=== PATIENT | male | born 1940 | race Caucasian/White ===

== ENCOUNTER → 2019-07-26 14:47 | Outpatient (BNVA) | payer MEDICARE, SELFPAY | PROVIDERS: Family Provider Family Medicine; PCP Family Medicine; Visit Provider Family Medicine | DX: R53.1 Weakness (principal); N40.0 Benign prostatic hyperplasia without lower urinary tract symptoms; I25.10 Atherosclerotic heart disease of native coronary artery without angina pectoris; G11.9 Hereditary ataxia, unspecified; R13.10 Dysphagia, unspecified; E78.5 Hyperlipidemia, unspecified; I10 Essential (primary) hypertension; E03.9 Hypothyroidism, unspecified; R32 Unspecified urinary incontinence; J98.4 Other disorders of lung; G71.00 Muscular dystrophy, unspecified; N20.0 Calculus of kidney | CPT/HCPCS: 36415; G0103 ==

== ENCOUNTER 2019-08-22 06:00 | Outpatient (RCR) | payer MEDICARE, SELFPAY | END 2019-09-09 23:59 | disposition home or self-care (01) | LOC: GOT 06:00 | PROVIDERS: Family Provider Family Medicine; PCP Family Medicine; Referring Provider Family Medicine; Visit Provider Family Medicine | DX: R53.1 Weakness (principal); G11.9 Hereditary ataxia, unspecified | CPT/HCPCS: 97112; 97167 ==

== ENCOUNTER → 2020-09-05 10:07 | Outpatient (BNVA) | payer MEDICARE, SELFPAY | PROVIDERS: Family Provider Family Medicine; PCP Family Medicine; Visit Provider Nurse Practitioner Family | DX: M25.511 Pain in right shoulder (principal); M89.9 Disorder of bone, unspecified | CPT/HCPCS: 73030; 73060 ==

== ENCOUNTER → 2021-02-20 10:50 | Outpatient (BNVA) | payer MEDICARE, SELFPAY | PROVIDERS: Family Provider Family Medicine; PCP Family Medicine; Visit Provider Family Medicine | DX: E03.9 Hypothyroidism, unspecified (principal); I10 Essential (primary) hypertension; E78.5 Hyperlipidemia, unspecified; N40.0 Benign prostatic hyperplasia without lower urinary tract symptoms; F32.9 Major depressive disorder, single episode, unspecified; G11.9 Hereditary ataxia, unspecified | CPT/HCPCS: 36415; 80053; 80061; 84153; 84439; 84443; 85025 ==

== ENCOUNTER → 2021-12-15 14:26 | Outpatient (BNVA) | payer MEDICARE, SELFPAY | PROVIDERS: Family Provider Family Medicine; PCP Family Medicine; Visit Provider Nurse Practitioner Family | DX: R53.83 Other fatigue (principal); I10 Essential (primary) hypertension; M62.81 Muscle weakness (generalized); E55.9 Vitamin D deficiency, unspecified; E56.9 Vitamin deficiency, unspecified | CPT/HCPCS: 80053; 80061; 82306; 82607; 84443; 84446; 85025 ==

== ENCOUNTER → 2022-01-29 10:55 | Outpatient (BNVA) | payer MEDICARE, SELFPAY | PROVIDERS: Family Provider Family Medicine; PCP Family Medicine; Visit Provider Nurse Practitioner Family | DX: E03.9 Hypothyroidism, unspecified (principal) | CPT/HCPCS: 84443 ==

== ENCOUNTER 2022-06-09 10:08 | Emergency (ER) | payer MEDICARE, SELFPAY ==
[2022-06-09] VITALS (13 sets, daily range): BP systolic 122–152; BP diastolic 68–97; PULSE 68–79; RESP 19–26; TEMP 36.6; O2SAT 88–99; BMI 24.4
--- NOTE | 2022-06-09 10:48 | XRR_ITS ---
PROCEDURE INFORMATION: Exam: XR Chest Exam date and time: 06/09/2022 11:58 AM Age: 82 years old Clinical indication: Cough TECHNIQUE: Imaging protocol: Radiologic exam of the chest. Views: 1 view. COMPARISON: [place] [id number] 09/05/2020 11:29 AM FINDINGS: Lungs: Scattered mild interstitial pulmonary fibrosis. No acute pulmonary infiltrates. Pleural spaces: Unremarkable. No pleural effusion. No pneumothorax. Heart/Mediastinum: The heart is not enlarged. The patient has undergone coronary bypass surgery. Bones/joints: Unremarkable. XR/XR chest 1V portable [id number] IMPRESSION: No acute abnormality.
--- NOTE | 2022-06-09 10:49 | ED_ITS ---
HPI - SOB/Dyspnea General: Chief Complaint: Shortness of Breath/Dyspnea Stated Complaint: SOB Time Seen by Provider: 06/09/22 10:36 History of Present Illness: HPI Narrative: 82-year-old male with a history of COPD who presents with a 4-day history of cough and shortness of breath. The patient was seen at [facility], diagnosed with influenza. He has been using his nebulizer at home without improvement. He presents today with increasing shortness of breath. He has had a cough which is nonproductive. He states he is not having fevers. 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 No vomiting or diarrhea. Associated symptoms: Deny abdominal pain, chest pain, fever(s), nausea, palpitations or vomiting Review of Systems Const: Reports: body aches, fatigue and daytime sleepiness; Denies: fever(s) or chills Eyes: Denies: change in vision or blurry vision ENMT: Denies: throat pain or ear or mastoid pain Card: Denies: chest pain, palpitations, irregular heart rhythm, edema or swelling of feet/ankles GI: Reports: heartburn; Denies: abdominal pain, nausea, vomiting, diarrhea or constipation Musc: Reports: muscle weakness and decrease in muscle mass Skin/Breast: Denies: rash or new lesions PFSH ED PFSH: Medical History (Updated 06/09/22 @ 13:49 by Dulce Parks MD) BPH (benign prostatic hyperplasia) CAD (coronary artery disease) Degeneration, cerebellar, primary Depressed Dysphagia Hyperlipidemia Hypertension Hypothyroid Incontinence of urine Need for immunization against influenza 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 Social History Smoking and tobacco status: former smoker Quit status (tobacco): has quit using tobacco Year quit tobacco: age 32 Alcohol intake: current Alcohol intake frequency: holidays/special occasions on ly Physical Exam Const: COMMON NORMALS: no acute distress, average body habitus and patient oriented x3 GENERAL APPEARANCE: cooperative Eye: COMMON NORMALS: Equal, round and reactive pupils present PUPIL: Yes Equal, round and reactive pupils present Neck/C-Spine: COMMON NORMALS: full ROM, no lymphadenopathy and no JVD Resp: COMMON NORMALS: No use of accessory muscles OTHER: Diffuse rhonchi in both lung coates bilaterally. Decreased breath sounds with wheezing in the upper lungs. Cardio: COMMON NORMALS: no JVD, regular rate, regular rhythm, S1 normal heart sound present, S2 normal heart sound present and No murmurs present (Cardio) RATE: regular rate RHYTHM: regular rhythm HEART SOUNDS: S1 normal heart sound present and S2 normal heart sound present GI: COMMON NORMALS: Soft to palpation and non-tender AUSCULTATION: Yes normoactive bowel sounds PALPATION: Yes Soft to palpation Neuro: COMMON NORMALS: patient oriented x3 Skin: COMMON NORMALS: no rashes or lesions noted GENERAL SKIN EXAM: no rashes or lesions noted Course Vital Signs: Vital signs: Vital Signs Temperature 97.8 F 06/09/22 10:15 Pulse Rate 77 06/09/22 14:00 Respiratory Rate 25 H 06/09/22 14:00 Blood Pressure 140/88 06/09/22 14:00 Pulse Oximetry 94 06/09/22 14:00 Oxygen Delivery Me thod 06/09/22 13:58 Oxygen Flow Rate 2 06/09/22 13:58 MDM - SOB/Dyspnea Medical Decision Making 82-year-old male with a history of COPD who presents, known influenza positive. The patient was seen yesterday. He presents today with increased shortness of breath. Upon arrival, he has diminished breath sounds with expiratory wheezes in all lung coates. His saturations are 94% on his baseline 4 L of oxygen. He has had an IV placed and labs obtained. Has been given IV Solu-Medrol as well as 3 DuoNeb nebulizer treatments. Was subsequently given 2 Xopenex nebulizer treatments. He still has some mild expiratory wheezing but is improved and stable for discharge home. We will have him continue his regular nebulizer treatments. I am placing him on doxycycline twice daily x10 days. Have also given him prednisone 50 mg x 7 days. Tessalon to take 3 times daily as needed for cough. He is instructed to return if his symptoms are worsening. He needs to monitor his oxygen levels and return if they fall below 90% on his baseline 3 L. Lab Data 06/09/22 10:30 06/09/22 10:30 Labs/Radiology: Radiology Impressions Chest X-Ray 06/09/22 10:48 IMPRESSION: No acute abnormality. Laboratory Results WBC 9.5 10^3/uL (4.0-10.0) 06/09/22 10:30 RBC 4.63 10^6/uL (4.1-5.3) 06/09/22 10:30 Hgb 13.7 g/dL (11.7-16.6) 06/09/22 10:30 Hct 43.6 % (42.0-52.0) 06/09/22 10:30 MCV 94.2 fl (80-94) H 06/09/22 10:30 MCH 29.6 pg (28.0-34.0) 06/09/22 10:30 MCHC 31.4 g/dL (30.0-36.0) 06/09/22 10:30 RDW 13.5 % (12.1-15.1) 06/09/22 10:30 Plt Count 201 10^3/cmm (130-400) 06/09/22 10:30 MPV 11.8 fL (7.4-10.4) H 06/09/22 10:30 Neut % (Auto) 83.0 % 06/09/22 10:30 Lymph % (Auto) 3.8 % 06/09/22 10:30 Jenkins % (Auto) 12.8 % 06/09/22 10:30 Eos % (Auto) 0.0 % 06/09/22 10:30 Baso % (Auto) 0.1 % 06/09/22 10:30 Neut # (Auto) 7.91 10^3/uL (1.8-7.7) H 06/09/22 10:30 Lymph # (Auto) 0.4 10^3/uL (0.8-4.8) L 06/09/22 10:30 Jenkins # (Auto) 1.2 10^3/uL (0.2-0.9) H 06/09/22 10:30 Eos # (Auto) 0.0 10^3/uL (0.0-0.8) 06/09/22 10:30 Baso # (Auto) 0.0 10^3/uL (0.0-0.1) 06/09/22 10:30 Nucleated RBC % (auto) 0 % 06/09/22 10:30 Nucleated RBCs # 0.0 /100WBC 06/09/22 10:30 Sodium 139 mmol/L (136-145) 06/09/22 10:30 Potassium 4.3 mmol/L (3.5-5.1) 06/09/22 10:30 Chloride 102 mmol/L (98-107) 06/09/22 10:30 Carbon Dioxide 29 mmol/L (22-29) 06/09/22 10:30 Anion Gap 12.3 (5-19) 06/09/22 10:30 BUN 37 mg/dL (8-23) H 06/09/22 10:30 Creatinine 0.9 mg/dL (0.7-1.2) 06/09/22 10:30 GFR Calculation Not Reportable 06/09/22 10:30 Glucose 118 mg/dL (65-115) H 06/09/22 10:30 Calculated Osmolality 298 mOsm/kg (285-295) H 06/09/22 10:30 Calcium 9.7 mg/dL (8.5-10.5) 06/09/22 10:30 Total Bilirubin 0.2 mg/dL (0.15-1.2) 06/09/22 10:30 AST 23 U/L (0-40) 06/09/22 10:30 ALT 20 U/L (0-41) 06/09/22 10:30 Alkaline Phosphatase 131 U/L (40-130) H 06/09/22 10:30 NT-Pro-B Natriuret Pep 403 pg/mL (0-450) 06/09/22 10:30 Total Protein 6.9 g/dL (6.6-8.7) 06/09/22 10:30 Albumin 3.7 g/dL (3.5-5.2) 06/09/22 10:30 Globulin 3.2 g/dL (1.3-4.6) 06/09/22 10:30 Imaging Data CXR: My impression: no infiltrate Discharge Plan Discharge Patient Disposition: Home Clinical Impression: COPD with exacerbation, Influenza Condition: Stable Prescriptions: New prednisone 50 mg tablet 50 mg PO DAILY 7 Days Qty: 7 0RF doxycycline hyclate 100 mg tablet 100 mg PO BID 10 Days Qty: 20 0RF benzonatate 200 mg capsule 200 mg PO TID PRN (Reason: cough) Qty: 20 0RF No Action triamcinolone acetonide 0.5 % ointment 1 applic TOPICAL DAILY Qty: 15 1RF aspirin 325 mg tablet 325 mg PO DAILY calcium carbonate-vitamin D3 500mg (1,250mg) -600 unit tablet PO DAILY albuterol sulfate 2.5 mg /3 mL (0.083 %) solution for nebulization 2.5 mg INHALATION Q4H PRN omega-3 fatty acids 1,000 mg capsule 1,000 mg PO DAILY ipratropium-albuterol 0.5 mg-3 mg(2.5 mg base)/3 mL solution for nebulization 3 ml INHALATION Q6H PRN Brovana 15 mcg/2 mL solution for nebulization 2 ml INHALATION BID budesonide 0.5 mg/2 mL suspension for nebulization 0.25 mg INHALATION BID Myrbetriq 50 mg tablet extended release 24 hr 50 mg PO Q24H magnesium hydroxide [Milk of Magnesia] 400 mg/5 mL suspension 15 ml PO DAILY ketotifen fumarate [Zaditor] 0.025 % (0.035 %) drops 1 drp ophthalmic (eye) Q12H Qty: 5 4RF hyoscyamine sulfate 0.125 mg tablet 0.125 mg PO Q6H PRN (Reason: dyspepsia) Qty: 360 3RF diltiazem HCl 60 mg tablet 60 mg PO TID Qty: 270 3RF nystatin 100,000 unit/gram powder 1 applic topical BID Qty: 60 5RF pantoprazole 40 mg tablet,delayed release (DR/EC) 40 mg PO DAILY Qty: 90 3RF levothyroxine 125 mcg tablet See Rx Instructions .ROUTE .COMPLEX Qty: 90 3RF Dose Instruction: TAKE 1 TABLET BY MOUTH DAILY Rx Instructions: TAKE 1 TABLET BY MOUTH DAILY Discharge Orders: Discharge ED (Routine); Ordered 06/09/22 Ordered By: Dulce Parks Referrals: Mckay Warren DO [Primary Care Provider] - Discharge Diet: Advance as tolerated Discharge Activity: Increase activity as tolerated Patient Instructions: Influenza (ED), COPD (Chronic Obstructive Pulmonary Disease) (ED), Opioid Safety, Pain Management Activity Restrictions/Additional Instructions: Take the prednisone daily in the morning. Take the doxycycline twice daily until gone. You can take the Tessalon 3 times daily as needed for cough. Continue your regular nebulizer treatments. Return if her symptoms are wors ening. Use your oxygen as needed. Monitor your oxygen saturations. If they are falling below 90% on your 4 L of oxygen, you need to return to the ER. Follow-up this week with your primary care doctor Coding Level of Care Code ED Senior Net Developer Architect for Chg Fwd Exam Detailed
[2022-06-09] MEDS: ipratropium-albuterol 3 mL Neb 9 ML INHALATION (10:54)
[2022-06-09 11:02] LABS: Basophils % 0.1 %; Hematocrit 43.6 % (42.0-52.0); Hemoglobin 13.7 g/dL (11.7-16.6); Lymphocytes # 0.4 10^3/uL (0.8-4.8); Lymphocytes % 3.8 %; Mean Corpuscular HGB Conc 31.4 g/dL (30.0-36.0); Mean Corpuscular Hemoglobin 29.6 pg (28.0-34.0); Mean Corpuscular Volume 94.2 fl (80-94); Mean Platelet Volume 11.8 fL (7.4-10.4); Monocytes # 1.2 10^3/uL (0.2-0.9); Monocytes % 12.8 %; Neutrophils # 7.91 10^3/uL (1.8-7.7); Nucleated Red Blood Cells % 0 %; Platelet Count 201 10^3/cmm (130-400); Red Blood Count 4.63 10^6/uL (4.1-5.3); Red Cell Distribution Width 13.5 % (12.1-15.1); White Blood Count 9.5 10^3/uL (4.0-10.0)
[2022-06-09 11:18] LABS: Alanine Aminotransferase 20 U/L (0-41); Albumin Level 3.7 g/dL (3.5-5.2); Alkaline Phosphatase 131 U/L (40-130); Anion Gap 12.3 (5-19); Aspartate Amino Transferase 23 U/L (0-40); Blood Urea Nitrogen 37 mg/dL (8-23); Calcium 9.7 mg/dL (8.5-10.5); Carbon Dioxide 29 mmol/L (22-29); Chloride 102 mmol/L (98-107); Globulin 3.2 g/dL (1.3-4.6); Glucose 118 mg/dL (65-115); NT Pro B Type Natriuretic Pept 403 pg/mL (0-450); Osmolality Calculated 298 mOsm/kg (285-295); Potassium 4.3 mmol/L (3.5-5.1); Sodium 139 mmol/L (136-145); Total Bilirubin 0.2 mg/dL (0.15-1.2); Total Protein 6.9 g/dL (6.6-8.7)
[2022-06-09] MEDS: benzonatate 100 mg Capsule 200 MG PO (11:25)
[2022-06-09] MEDS: acetaminophen 325 mg Tablet 650 MG PO (13:06)
[2022-06-09] MEDS: levalbuterol 1.25 mg/3 mL Neb 2.5 MG INHALATION (13:47)
== END 2022-06-09 14:38 | disposition home or self-care (01) ==
PROVIDERS: Emergency Provider Emergency Medicine; PCP Family Medicine
DX: J44.1 Chronic obstructive pulmonary disease with (acute) exacerbation (principal); J11.1 Influenza due to unidentified influenza virus with other respiratory manifestations; Z79.82 Long term (current) use of aspirin; I25.10 Atherosclerotic heart disease of native coronary artery without angina pectoris; E78.5 Hyperlipidemia, unspecified; I10 Essential (primary) hypertension; Z87.891 Personal history of nicotine dependence
CPT/HCPCS: 71045; 80053; 83880; 85025; 94640; 96374; 99284; J2930; J7614

== ENCOUNTER → 2023-03-04 13:46 | Outpatient (BNVA) | payer MEDICARE, SELFPAY | PROVIDERS: PCP Family Medicine; Visit Provider Nurse Practitioner Family | DX: R34 Anuria and oliguria (principal); N39.0 Urinary tract infection, site not specified; Z96.22 Myringotomy tube(s) status | CPT/HCPCS: 81003; 87077; 87086; 87184 ==

== ENCOUNTER → 2023-06-18 11:09 | Outpatient (BNVA) | payer MEDICARE, SELFPAY | PROVIDERS: PCP Family Medicine; Visit Provider Nurse Practitioner Family | DX: R60.0 Localized edema (principal); I10 Essential (primary) hypertension; E03.9 Hypothyroidism, unspecified | CPT/HCPCS: 80053 ==

== ENCOUNTER → 2023-07-29 08:00 | Outpatient (BNVA) | payer MEDICARE, SELFPAY | PROVIDERS: PCP Family Medicine; Visit Provider Nurse Practitioner Family | DX: E03.9 Hypothyroidism, unspecified (principal) | CPT/HCPCS: 84443 ==

== ENCOUNTER → 2023-08-04 12:19 | Outpatient (BNVA) | payer MEDICARE, SELFPAY | PROVIDERS: PCP Family Medicine; Visit Provider Internal Medicine Pulmonary Disease | DX: J44.9 Chronic obstructive pulmonary disease, unspecified (principal); R60.0 Localized edema; R06.02 Shortness of breath; K11.7 Disturbances of salivary secretion; K44.9 Diaphragmatic hernia without obstruction or gangrene; M25.472 Effusion, left ankle; M25.471 Effusion, right ankle; Z87.891 Personal history of nicotine dependence | CPT/HCPCS: 71046; 99204 ==

== ENCOUNTER 2023-08-13 10:42 | Outpatient (CLI) | payer MEDICARE, SELFPAY ==
--- NOTE | 2023-08-13 11:00 | USCV_ITS ---
Jennifer Gotti Age: 83 Gender: M : 1940 Exam Date: 08/13/2023 11:15 Ordering Phys: Bg Gandhi MD Technologist: Caleb Mcgowan Exam Location: [facility] [place] Indication: sob BP: 132 / 86 HR: 68 Rhythm: Sinus Technical Quality: Adequate MEASUREMENTS (Male / Female) Normal Values 2D ECHO LVOT Diameter 2.0 cm LV Ejection Fraction MOD 2C 60.9 % LV Ejection Fraction 2C AL 61.6 % LA Diameter 4.3 cm LA Width 4.2 cm LA Height 4.9 cm RA Width 3.3 cm RA Height 5.3 cm Aorta at Sinotubular Diameter 2.6 cm M-MODE Aortic Annulus Diameter 2.3 cm LA Ao Ratio MM 1.1 MV E Point Septal Separation 0.6 cm DOPPLER AV Peak Velocity 98.0 cm/s LVOT Peak Velocity 92.0 cm/s AV Area Cont Eq vti 3.0 cm squared AV Area Cont Eq pk 3.1 cm squared MV Peak Velocity 99.0 cm/s MV Area PHT 5.0 cm squared Mitral E to A Ratio 4.2 MV E' Velocity 50.5 cm/s Mitral E to MV E' Ratio 9.7 Mitral E to LV E' Lateral Ratio 10.2 Mitral E to LV E' Septal Ratio 9.4 TR Peak Velocity 312.8 cm/s TR Peak Gradient 39.1 mmHg TR Mean Velocity 235.9 cm/s TR Mean Gradient 24.0 mmHg TR Velocity Time Integral 81.7 cm Right Atrial Pressure 8.0 mmHg Pulmonary Artery Systolic Pressu 47.1 mmHg PV Peak Velocity 100.3 cm/s RV Acceleration Time 0.1 s RV Ejection Time 0.3 s RV AcT/ET 0.4 FINDINGS Left Ventricle Left ventricle is normal in size. LV systolic function is normal with EF of 50 to 55%. No regional wall motion abnormalities are seen. Right Ventricle Grossly normal. Right Atrium Normal size Left Atrium Normal in size Mitral Valve Mitral valve is thickened and calcified. Mild mitral regurgitation. Aortic Valve Aortic valve is thickened. No significant stenosis or regurgitation. Tricuspid Valve Mild tricuspid regurgitation. RVSP is 45 to 50 mmHg. This is consistent with moderate pulmonary hypertension. Pulmonic Valve Not well-visualized. Mild pulmonic regurgitation. Pericardium Normal Aorta Normal in siz e IVC Appears to be normal CONCLUSIONS LV systolic function is normal with EF of 50 to 55%. Mild mitral regurgitation Mild tricuspid regurgitation Moderate pulmonary hypertension Mild pulmonic regurgitation No comparison studies are available. Kendall Isaac MD (Electronically Signed) Final Date: 22 August 2023 20:13 S
== END 2023-08-13 10:43 | disposition home or self-care (01) ==
LOC: RAD 10:42
PROVIDERS: PCP Family Medicine; Visit Provider Internal Medicine Pulmonary Disease
DX: I08.8 Other rheumatic multiple valve diseases (principal)
CPT/HCPCS: 93306

== ENCOUNTER → 2023-08-26 14:50 | Outpatient (BNVA) | payer MEDICARE, SELFPAY | PROVIDERS: PCP Family Medicine; Visit Provider Nurse Practitioner Family | DX: I73.9 Peripheral vascular disease, unspecified (principal); I25.10 Atherosclerotic heart disease of native coronary artery without angina pectoris; I10 Essential (primary) hypertension; M25.471 Effusion, right ankle; M25.472 Effusion, left ankle | CPT/HCPCS: 80048 ==

== ENCOUNTER 2023-10-06 19:44 | Inpatient (IN) | payer MEDICARE, SELFPAY ==
[2023-10-06] VITALS (8 sets, daily range): BP systolic 126–232; BP diastolic 83–189; PULSE 51–107; RESP 19–26; TEMP 36.4–36.6; O2SAT 95–100; BMI 27.1
--- NOTE | 2023-10-06 19:48 | ECG_ITS ---
[facility] Test Date: 2023-10-06 Pat Name: Jennifer Gotti Department: Room: Gender: Male Continuous Improvement Coordinator: : 1940 Requested By: Armida Schmidt Order Number: [id number] Jerrod MD: Sal Nieves M.D. Measurements Intervals David Rate: 93 P: 0 ME: 0 QRS: 79 QRSD: 101 T: 68 QT: 342 QTc: 426 Interpretive Statements ATRIAL FIBRILLATION NONSPECIFIC ST & T-WAVE ABNORMALITY ABNORMAL RHYTHM ECG No previous ECG available for comparison Electronically Signed On 10-06-2023 23:58:21 CDT by Sal Nieves M.D. [id number]
--- NOTE | 2023-10-06 19:49 | XR_ITS ---
WS: [id number] Exam: XR chest 1V portable [id number] Date/Time of Exam: 10/06/2023 7:49 PM Reason For Exam: sob Comparison 08/04/2023. The lungs are hyperinflated and clear. Chronic interstitial changes. Heart size is normal. Status pos t CABG surgery. The mediastinum is normal in contour. Regional bony structures are intact. Levoscolio sis of the T-spine. IMPRESSION: 1. Pulmonary hyperinflation which may indicate COPD. No acute process noted.
--- NOTE | 2023-10-06 19:50 | ED_ITS ---
HPI - SOB/Dyspnea 2 General: Chief Complaint: Shortness of Breath/Dyspnea Stated Complaint: COPD exacerbation Time Seen by Provider: 10/06/23 19:46 Source: patient and EMS Mode of arrival: EMS History of Present Illness: HPI Narrative: 83-year-old male has a history of severe COPD has been having increasing shortness of breath throughout the day EMS states when they arrived he was working very hard to breathe he still is tachypneic and only able to speak in 2- 3 word sentences patient was given steroids breathing treatment and route he is on 4 L at baseline denies any fever denies any pain anywhere. He was quite anxious EMS was given 0.5 mg of Ativan Associated symptoms: Deny abdominal pain, chest pain, fever(s), nausea or vomiting Review of Systems 2 Const: Denies: fever(s), chills, body aches or change in appetite ENMT: Denies: throat pain or dental pain Card: Denies: chest pain Resp: Reports: dyspnea GI: Denies: abdominal pain, nausea, vomiting or diarrhea Musc: Denies: neck pain or back pain Skin/Breast: Denies: rash Neuro: Denies: headache(s) PFSH ED 2 PFSH: Medical History Need for immunization against influenza Degeneration, cerebellar, primary Hypertension Dysphagia Hypothyroid 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 Incontinence of urine Hyperlipidemia BPH (benign prostatic hyperplasia) CAD (coronary artery disease) Social History Smoking and tobacco/nicotine status: former use of tobacco/nicotine Quit status (tobacco/nicotine): has quit using Year quit tobacco: 1971 Former quit date comment: 1ppd X 14 years Alcohol intake: current Alcohol intake frequency: holidays/special occasions only Physical Exam 2 Const: COMMON NORMALS: patient oriented x3 GENERAL APPEARANCE: ill appearing HENMT: COMMON NORMALS: normocephalic and atraumatic HEAD & SCALP: n ormocephalic and atraumatic Neck/C-Spine: COMMON NORMALS: full ROM and supple Chest: COMMONS NORMALS: normal inspection of the chest Resp: COMMON NORMALS: No retractions EFFORT & INSPECTION: Yes tachypneic and Yes respiratory distress AUSCULTATION: wheezes and diminished lung sounds Cardio: COMMON NORMALS: regular rate, regular rhythm and No murmurs present (Cardio) RATE: regular rate RHYTHM: regular rhythm GI: COMMON NORMALS: Normal to inspection, nondistended, normoactive bowel sounds present, Soft to palpation, non-tender and no masses PALPATION: Yes Soft to palpation Extremity: COMMON NORMALS: normal to inspection and full ROM Neuro: COMMON NORMALS: patient oriented x3, moves all extremities and no focal motor deficits Psych: COMMON NORMALS: mental status grossly normal, Normal thought process present and cooperative THOUGHT PROCESS: Normal thought process present Skin: COMMON NORMALS: no rashes or lesions noted and no wounds GENERAL SKIN EXAM: no rashes or lesions noted Course 2 Vital Signs: Vital signs: Vital Signs Temperature 97.8 F 10/06/23 19:47 Pulse Rate 98 10/06/23 20:01 Respiratory Rate 24 H 10/06/23 19:59 Blood Pressure 186/111 10/06/23 19:47 Pulse Oximetry 99 10/06/23 20:01 Oxygen Delivery Me thod BiPAP 10/06/23 19:59 Oxygen Flow Rate 10 10/06/23 19:47 Fraction of Inspir ed Oxygen 50 10/06/23 20:01 MDM - SOB/Dyspnea Medical Decision Making Patient presents for COPD exacerbation he is hypercapnic as well his breathing is much improved here on BiPAP his lungs sound clear with better inspirations x- ray shows no pneumonia spoke to hospitalist and will admit at this time. Medical Records I reviewed the patient's medical records. Lab Data I reviewed the patient's lab results. 10/06/23 19:58 10/06/23 19:58 Labs/Radiology: Laboratory Results WBC 7.16 10^3/uL (3.29-11.43) 10/06/23 19:58 RBC 4.97 10^6/uL (3.85-5.65) 10/06/23 19:58 Hgb 14.20 g/dL (11.27-16.99) 10/06/23 19:58 Hct 47.2 % (37-53) 10/06/23 19:58 MCV 95.0 fl (82-101) 10/06/23 19:58 MCH 28.6 pg (27-33) 10/06/23 19:58 MCHC 30.1 g/dL (30-55) 10/06/23 19:58 RDW 13.9 % (12.1-15.1) 10/06/23 19:58 Plt Count 207 10^3/cmm (157-399) 10/06/23 19:58 MPV 11.5 fL (7.4-10.4) H 10/06/23 19:58 Neut % (Auto) 65.5 % 10/06/23 19:58 Lymph % (Auto) 17.7 % 10/06/23 19:58 Sutter % (Auto) 11.7 % 10/06/23 19:58 Eos % (Auto) 4.1 % 10/06/23 19:58 Baso % (Auto) 0.7 % 10/06/23 19:58 Neut # (Auto) 4.69 10^3/uL (1.8-7.7) 10/06/23 19:58 Lymph # (Auto) 1.3 10^3/uL (0.8-4.8) 10/06/23 19:58 Sutter # (Auto) 0.8 10^3/uL (0.2-0.9) 10/06/23 19:58 Eos # (Auto) 0.3 10^3/uL (0.0-0.8) 10/06/23 19:58 Baso # (Auto) 0.1 10^3/uL (0.0-0.1) 10/06/23 19:58 Nucleated RBC % (auto) 0 % 10/06/23 19:58 Nucleated RBCs # 0.0 /100WBC 10/06/23 19:58 PT 14.20 SECONDS (12.1-14.9) 10/06/23 19:58 INR 1.07 (0.8-1.2) 10/06/23 19:58 Specimen Type Arterial 10/06/23 20:09 Sample Site Brachial, right 10/06/23 20:09 ABG pH 7.32 (7.35-7.45) L 10/06/23 20:09 ABG pCO2 61.7 mmHg (35-45) H* 10/06/23 20:09 ABG pO2 210.0 mmHg (80.0-100.0) H 10/06/23 20:09 ABG PO2/FiO2 Ratio 0 10/06/23 20:09 ABG HCO3 31.4 mmol/L (22-26) H 10/06/23 20:09 ABG Base Excess 3.4 mmol/L (-2.0-2.0) H 10/06/23 20:09 Kapil Test N/a 10/06/23 20:09 Hematocrit 43.2 % (42-52) 10/06/23 20:09 Hgb O2 Saturation 98.7 % (95-100) 10/06/23 20:09 Carboxyhemoglobin 0.2 %THgb (0.4-20.1) L 10/06/23 20:09 Methemoglobin 0.5 % (0.4-1.5) 10/06/23 20:09 Total Hemoglobin 14.1 g/dL (14-18) 10/06/23 20:09 O2 Delivery Device Bipap 10/06/23 20:09 FiO2 50.0 % 10/06/23 20:09 [place] [employer] ID [email or web address] 10/06/23 20:09 Sodium 139 mmol/L (136-145) 10/06/23 19:58 Potassium 5.2 mmol/L (3.5-5.1) H 10/06/23 19:58 Chloride 103 mmol/L (98-107) 10/06/23 19:58 Carbon Dioxide 27 mmol/L (22-29) 10/06/23 19:58 Anion Gap 14.2 (5-19) 10/06/23 19:58 BUN 30 mg/dL (8-23) H 10/06/23 19:58 Creatinine 1.4 mg/dL (0.7-1.2) H 10/06/23 19:58 GFR Calculation Not Reportable 10/06/23 19:58 Glucose 138 mg/dL (65-115) H 10/06/23 19:58 Calculated Osmolality 296 mOsm/kg (285-295) H 10/06/23 19:58 Calcium 9.8 mg/dL (8.5-10.5) 10/06/23 19:58 Total Bilirubin 0.3 mg/dL (0.15-1.2) 10/06/23 19:58 AST 15 U/L (0-40) 10/06/23 19:58 ALT 12 U/L (0-41) 10/06/23 19:58 Alkaline Phosphatase 156 U/L (40-130) H 10/06/23 19:58 NT-Pro-B Natriuret Pep 1122 pg/mL (0-450) H 10/06/23 19:58 Total Protein 7.0 g/dL (6.6-8.7) 10/06/23 19:58 Albumin 4.3 g/dL (3.5-5.2) 10/06/23 19:58 Globulin 2.7 g/dL (1.3-4.6) 10/06/23 19:58 Influenza Type A Ag negative (Negative) 10/06/23 20:07 Influenza Type B Ag negative (Negative) 10/06/23 20:07 SARS-CoV-2 Ag (Rapid) Negative (Negative) 10/06/23 20:07 All radiology interpretation(s) finalized by discharge EKG Data EKG 1: I personally reviewed and interpreted this EKG as follows: EKG Interpretation Date: 10/06/23 EKG interpretation time: 20:05 Interpretation: afib hr [address] or t wave abnormalities qrs 101 qtc 393 Critical Care Time 2 Critical Care Time: Critical Care Time: Yes Total Critical Care Time: 40 Attestation: The high probability of a clinically significant, sudden or life threatening deterioration of the patient's respsystem(s) required my full and direct attention, intervention and personal management. The critical care time is as shown. This time is in addition to time spent performing any reported procedures but includes the following: [x] Data and vital sign review and interpretation [x] Patient assessment, examination and intervention [x] Documentation [x] Medication orders and management Discharge Plan Discharge Patient Disposition: Admitted As Inpatient Clinical Impression: COPD exacerbation, Acute and chronic respiratory failure with hypercapnia Condition: Stable Prescriptions: No Action aspirin 325 mg tablet 325 mg PO DAILY ipratropium-albuterol 0.5 mg-3 mg(2.5 mg base)/3 mL solution for nebulization 3 ml INHALATION Q6H PRN magnesium hydroxide [Milk of Magnesia] 400 mg/5 mL suspension 15 ml PO DAILY clotrimazole 1 % cream 1 applic topical BID Antacid Ultra Strength 430 mg calcium (1,000 mg) tablet,chewable 430 mg PO DAILY Anoro Ellipta 62.5-25 mcg/actuation blister with device 1 inh inhalation DAILY Qty: 60 6RF Rx Instructions: 340 B cholecalciferol (vitamin D3) 125 mcg (5,000 unit) capsule 125 mcg PO DAILY omega 5-sjr-ktw-fish oil 1,200 (144-216) mg capsule PO diltiazem HCl 60 mg tablet 60 mg PO TID Qty: 300 3RF levothyroxine 125 mcg tablet See Rx Instructions .ROUTE .COMPLEX Qty: 90 3RF Dose Instruction: TAKE 1 TABLET BY MOUTH DAILY Rx Instructions: TAKE 1 TABLET BY MOUTH DAILY furosemide 40 mg tablet 40 mg PO QAM Qty: 7 0RF (DME) AffloVest See Rx Instructions .Route .MEDSUPPLY Qty: 1 0RF Rx Instructions: High frequency chest wall oscillation at 5Hz-20Hz for 30 minutes twice daily. miscellaneous medical supply Misc See Rx Instructions .ROUTE .COMPLEX Qty: 1 0RF Rx Instructions: please repair power wheelchair and joystick.; Referrals: Mckay Warren, [Primary Care Provider] - Coding Level of Care Code ED Fuel Testing Technician for Onel Cool
[2023-10-06] MEDS: methylPREDNISolone sod succ 125 mg/2 mL INJ IV (19:57)
[2023-10-06] MEDS: ipratropium-albuterol 3 mL Neb INHALATION (19:59)
[2023-10-06 20:04] LABS: Basophils # 0.1 10^3/uL (0.0-0.1); Basophils % 0.7 %; Eosinophils # 0.3 10^3/uL (0.0-0.8); Eosinophils % 4.1 %; Hematocrit 47.2 % (37-53); Lymphocytes # 1.3 10^3/uL (0.8-4.8); Lymphocytes % 17.7 %; Mean Corpuscular HGB Conc 30.1 g/dL (30-55); Mean Corpuscular Hemoglobin 28.6 pg (27-33); Mean Platelet Volume 11.5 fL (7.4-10.4); Monocytes # 0.8 10^3/uL (0.2-0.9); Monocytes % 11.7 %; Neutrophils # 4.69 10^3/uL (1.8-7.7); Neutrophils % 65.5 %; Nucleated Red Blood Cells % 0 %; Platelet Count 207 10^3/cmm (157-399); Red Blood Count 4.97 10^6/uL (3.85-5.65); Red Cell Distribution Width 13.9 % (12.1-15.1); White Blood Count 7.16 10^3/uL (3.29-11.43)
[2023-10-06 20:20] LABS: ABG PCO2 61.7 mmHg (35-45); ABG PH Result 7.32 (7.35-7.45); Arterial Blood Gas Hematocrit 43.2 % (42-52); Base Excess ABG 3.4 mmol/L (-2.0-2.0); Blood Gas Sample Site Brachial, right; Blood Gas Sample Type Arterial; Carboxyhemoglobin 0.2 %THgb (0.4-20.1); HCO3 ABG 31.4 mmol/L (22-26); HGB O2 Sat 98.7 % (95-100); Methemoglobin 0.5 % (0.4-1.5); Oxygen Device BIPAP; PO2 FiO2 Ratio Arterial Blood 0; Total Hemoglobin 14.1 g/dL (14-18)
[2023-10-06 20:23] LABS: INR 1.07 (0.8-1.2)
[2023-10-06 20:28] LABS: Influenza A by IFA negative (Negative); Influenza B by IFA negative (Negative)
[2023-10-06 20:33] LABS: SARS Covid-2 Antigen Negative (Negative)
[2023-10-06 20:38] LABS: Alanine Aminotransferase 12 U/L (0-41); Albumin Level 4.3 g/dL (3.5-5.2); Alkaline Phosphatase 156 U/L (40-130); Anion Gap 14.2 (5-19); Aspartate Amino Transferase 15 U/L (0-40); Blood Urea Nitrogen 30 mg/dL (8-23); Calcium 9.8 mg/dL (8.5-10.5); Carbon Dioxide 27 mmol/L (22-29); Chloride 103 mmol/L (98-107); Creatinine Clr Calc Pharmacy 45.2043; Globulin 2.7 g/dL (1.3-4.6); Glucose 138 mg/dL (65-115); NT Pro B Type Natriuretic Pept 1122 pg/mL (0-450); Osmolality Calculated 296 mOsm/kg (285-295); Potassium 5.2 mmol/L (3.5-5.1); Sodium 139 mmol/L (136-145); Total Bilirubin 0.3 mg/dL (0.15-1.2)
--- NOTE | 2023-10-06 21:26 | P.HP_ITS ---
Providers/Chief Complaint 2 Primary Care Provider: Mckay Warren DO Chief Complaint: COPD exacerbation History of Present Illness Jennifer Gotti is a 83 year old male with history of muscular dystrophy paraesophageal hernia, severe COPD, follows up with Dr. Boyd, uses albuterol 3.5 L of oxygen at baseline, presented with worsening shortness of breath. Patient has stating that he has not noticed any chest pain, fever but endorsing productive cough, chest congestion and shortness of breath. He is endorsing cough and PND, stating that after supper he wanted to go to lay down in his bed but he started getting more short of breath that prompted a visit to the ER. In the ER he has been diagnosed with acute hypoxic hypercapnic respite failure requiring BiPAP Workup in the ER revealed hypokalemia, ANNIE, high BNP Clinical signs of fluid overload Patient is wheelchair-bound Eats regular diet Review of Systems 2 Const: Denies: fever(s) Eyes: Denies: change in vision ENMT: Denies: throat pain Card: Reports: swelling of feet/ankles; Denies: chest pain Resp: Reports: dyspnea; Denies: wheezing GI: Denies: abdominal pain : Denies: flank pain Musc: Denies: neck pain Medications/Allergies Home Medications Medication Instructions Recorded Confirmed Last Taken Type ipratropium 0.5 mg-albuterol 3 mg 3 ml inhalation Q6H PRN 07/26/19 08/26/23 Unknown History (2.5 mg base)/3 mL nebulization soln aspirin 325 mg tablet 325 mg PO DAILY 02/20/21 08/26/23 Unknown History magnesium hydroxide 400 mg/5 mL 15 ml PO DAILY 02/20/21 08/26/23 Unknown History oral suspension (Milk of Magnesia) cholecalciferol (vitamin D3) 125 125 mcg PO DAILY 07/29/23 08/26/23 Unknown History mcg (5,000 unit) capsule diltiazem HCl 60 mg tablet 60 mg PO TID #300 tabs 07/29/23 08/26/23 Unknown Rx levothyroxine 125 mcg tablet See Rx Instructions .Route 07/29/23 08/26/23 Unknown Rx .COMPLEX #90 tabs omega 3-mtj-syw-fish oil 1,200 mg cap PO 07/29/23 08/26/23 Unknown History (144 mg-216 mg) capsule calcium carbonate 430 mg calcium 430 mg PO DAILY 08/04/23 08/26/23 Unknown History (1,000 mg) chewable tablet (Antacid Ultra Strength) clotrimazole 1 % topical cream 1 applic topical BID 08/04/23 08/26/23 Unknown History AffloVest #1 ea 08/10/23 08/26/23 Unknown Rx furosemide 40 mg tablet 40 mg PO QAM #7 tabs 08/18/23 08/26/23 Unknown Rx umeclidinium 62.5 mcg-vilanterol 1 inh inhalation DAILY #60 ea 08/24/23 08/26/23 Unknown Rx 25 mcg/actuation powdr for inhalation (Anoro Ellipta) miscellaneous medical supply See Rx Instructions .Route 09/30/23 Unknown Rx .COMPLEX #1 ea Allergies Allergy/AdvReac Type Severity Reaction Status Date / Time No Known Allergies Allergy Verified 08/18/23 15:37 PFSH Acute 2 PFSH: Medical History Need for immunization against influenza Degeneration, cerebellar, primary Hypertension Dysphagia Hypothyroid 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 Incontinence of urine Hyperlipidemia BPH (benign prostatic hyperplasia) CAD (coronary artery disease) Social History Smoking and tobacco/nicotine status: former use of tobacco/nicotine Quit status (tobacco/nicotine): has quit using Year quit tobacco: 1971 Former quit date comment: 1ppd X 14 years Alcohol intake: current Alcohol intake frequency: holidays/special occasions only Vitals/I&O/Wt Last Vital Signs Temp 97.8 F 10/06/23 19:47 Pulse 51 L 10/06/23 20:42 Resp 24 H 10/06/23 21:07 BP 218/123 10/06/23 21:07 Pulse Ox 95 10/06/23 20:42 O2 Del Method BiPAP 10/06/23 21:07 O2 Flow Rate 10 10/06/23 19:47 FiO2 50 10/06/23 20:01 Weight last 48 hrs Weight 90.718 kg Physical Exam 2 Narrative: Currently patient is a BiPAP Awake and alert Clinical signs of fluid overload Pedal edema 2+ GCS 15 No active distress No active chest pain S1, S2 Abdomen soft Data 10/06/23 19:58 10/06/23 19:58 A&P Assessment and plan (1) Paroxysmal atrial fibrillation: (2) Hypothyroid: Qualifiers: Hypothyroidism type: acquired Qualified Code(s): E03.9 - Hypothyroidism, unspecified (3) Acute and chronic respiratory failure with hypercapnia: (4) Peripheral edema: (5) CHF exacerbation: Plan Acute COPD exacerbation Underlying congestive heart failure exacerbation Diastolic CHF I will give him IV Bumex Monitor urine output with Bonilla catheter Placed patient on BiPAP for hypercapnic respite failure Repeat ABG in 1 hour Will request D-dimer as well Currently patient is on BiPAP Muscular dystrophy Uses wheelchair at baseline, eats regular diet Full code goals of care discussed with the patient Paroxysmal A-fib: Not on anticoagulating agent [id number] is extremely high he is high risk for stroke, I will go ahead and start him on Eliquis 5 mg twice daily Cardiac diet Full code DVT prophylaxis on board Attestations 2 Medical Necessity Statement*: Continue medical management anticipating more than 2 midnights Diagnoses Paroxysmal atrial fibrillation I48.0 Acquired hypothyroidism E03.9 Hypothyroidism type: acquired Acute and chronic respiratory failure with hypercapnia J96.22 Peripheral edema R60.0 CHF exacerbation I50.9
[2023-10-06 21:59] LABS: D Dimer 0.92 ug/mLFEU (0-0.59)
[2023-10-06] MEDS: cefTRIAXone 1,000 MG in sodium chloride 0.9% (plus) 50 ML 100 MG IV (22:07)
[2023-10-06 23:03] LABS: Estmated Average Glucose 123; Hemoglobin A1C 5.9 % (4.0-6.0)
[2023-10-06] MEDS: FUROsemide 10 mg/mL SDV 10mL 60 MG IVP (23:53)
[2023-10-07] VITALS (10 sets, daily range): BP systolic 104–130; BP diastolic 65–80; PULSE 68–98; RESP 14–20; TEMP 36.5–36.8; O2SAT 90–99
--- NOTE | 2023-10-07 01:19 | PC.NURSE ---
Patient states that he does not currently have any suicidal thoughts, but he has in the past.
[2023-10-07] MEDS: ipratropium-albuterol 3 mL Neb INHALATION ×2 (03:00→09:26)
[2023-10-07 03:44] LABS: ABG PCO2 48.2 mmHg (35-45); ABG PH Result 7.43 (7.35-7.45); Arterial Blood Gas Hematocrit 40.7 % (42-52); Base Excess ABG 6.7 mmol/L (-2.0-2.0); Blood Gas Allen Test Pos; Blood Gas Operator Identificat JB; Blood Gas Sample Site Brachial, right; Blood Gas Sample Type Arterial; HCO3 ABG 32.2 mmol/L (22-26); Oxygen Device BIPAP; PO2 ABG 96.8 mmHg (80.0-100.0); PO2 FiO2 Ratio Arterial Blood 0
[2023-10-07] MEDS: levothyroxine 125 mcg Tablet PO (05:06)
[2023-10-07 05:28] LABS: Blood Urea Nitrogen 35 mg/dL (8-23); C Reactive Protein 3.9 mg/L (0.0-4.9); Carbon Dioxide 28 mmol/L (22-29); Chloride 99 mmol/L (98-107); Creatinine Clr Calc Pharmacy 42.2531; Glucose 166 mg/dL (65-115); Magnesium 2.1 mg/dL (1.7-2.3); Osmolality Calculated 300 mOsm/kg (285-295); Sodium 139 mmol/L (136-145)
[2023-10-07 05:36] LABS: Anion Gap 16.3 (5-19); Potassium 4.3 mmol/L (3.5-5.1)
--- NOTE | 2023-10-07 08:06 | PC.PHAR ---
PT STATES HE IS OFF ALL MEDICATIONS EXCEPT 4. LEFT MESSAGE FOR TO CALL BACK FOR VERIFICATION PRIOR TO REMOVING THEM FROM CHART. 10/07/23
[2023-10-07] MEDS: doxycycline 100 mg Tablet PO ×2 (08:15→18:18)
[2023-10-07] MEDS: dilTIAZem 60 mg Tablet PO ×3 (08:15→21:10)
[2023-10-07] MEDS: cefTRIAXone 1,000 MG in sodium chloride 0.9% (plus) 50 ML 100 MG IV (08:15)
--- NOTE | 2023-10-07 11:54 | P.PN_ITS ---
Subjective 2 Subjective: seen this morning no acute events overnight he is on room air at this time. RN stated his home o2 is 3.5L but pt tends to remove O2 when he feels like it states he uses a power lift chair Vitals/I&O/Wt Last Vital Signs Temp 98.0 F 10/07/23 11:50 Pulse 68 10/07/23 11:50 Resp 15 10/07/23 11:50 BP 130/80 10/07/23 11:50 Pulse Ox 96 10/07/23 11:50 O2 Del Method Room Air 10/07/23 11:50 O2 Flow Rate 4 10/07/23 08:00 FiO2 3.5 10/07/23 09:28 10/06/23 10/07/23 10/07/23 22:59 06:59 14:59 Intake Total 50 / 50 290 / 290 Output Total 1775 / 1775 Balance -1725 / -1725 290 / 290 Weight last 48 hrs Weight 77.196 kg Weight 76.294 kg Weight 90.718 kg Physical Exam 2 Narrative: Currently patient is a BiPAP Awake and alert Clinical signs of fluid overload Pedal edema 2+ GCS 15 No active distress No active chest pain S1, S2 Abdomen soft Chronic dysarthria as per Urinary Catheter Management: Lorenzo: Cath Placed During This Visit: yes Reason for Continuing Indwelling Catheter: Accurate Measurement of Urinary Output in Critically Ill Patients Urinary Catheter Date of Insertion: 10/07/23 Urinary Catheter Time of Insertion: 00:10 Data 10/06/23 19:58 10/07/23 04:26 A&P Assessment and plan (1) Paroxysmal atrial fibrillation: (2) Hypothyroid: Qualifiers: Hypothyroidism type: acquired Qualified Code(s): E03.9 - Hypothyroidism, unspecified (3) Acute and chronic respiratory failure with hypercapnia: (4) Peripheral edema: (5) CHF exacerbation: Plan Acute COPD exacerbation Underlying congestive heart failure exacerbation Diastolic CHF I will give him IV Bumex Monitor urine output with Lorenzo catheter Placed patient on BiPAP for hypercapnic respite failure Repeat ABG in 1 hour D-dimer 0.92, age adjusted, low risk VTE Currently patient is on BiPAP Muscular dystrophy Uses wheelchair at baseline, eats regular diet Full code goals of care discussed with the patient Remove lorenzo check UA Paroxysmal A-fib: Not on anticoagulating agent [id number] is extremely high he is high risk for stroke continue eliquis 5 bid Cardiac diet Full code DVT prophylaxis on board Attestations 2 Medical Necessity Statement*: Continue medical management anticipating more than 2 midnights Diagnoses Paroxysmal atrial fibrillation I48.0 Acquired hypothyroidism E03.9 Hypothyroidism type: acquired Acute and chronic respiratory failure with hypercapnia J96.22 Peripheral edema R60.0 CHF exacerbation I50.9
[2023-10-07] MEDS: apixaban 5 mg Tablet PO (21:10)
[2023-10-08] VITALS: BP 112/66; PULSE 66; RESP 18; TEMP 36.4; O2SAT 97
[2023-10-08] MEDS: FUROsemide 10 mg/mL SDV 10mL 60 MG IVP (00:18)
[2023-10-08 04:00] VITALS: BP 147/82; PULSE 80; RESP 18; TEMP 36.4; O2SAT 95
[2023-10-08 05:13] LABS: Bilirubin Urine Neg (Negative); Blood Urine Neg (Negative); Glucose Urine UA Norm (Normal); Ketones Urine Negative (Negative); Leukocyte Esterase Urine Negative (Negative); Nitrate Urine Negative (Negative); Protein Urine Neg (Negative); Specific Gravity, Urine 1.005 (1.005-1.030); Urine Appearance Clear (CLEAR); Urine Color Colorless (Yellow); Urobilinogen Urine Neg (Negative); pH Urine 7 (5-7)
[2023-10-08 05:14] LABS: Basophils % 0.1 %; Hematocrit 42.6 % (37-53); Lymphocytes # 0.4 10^3/uL (0.8-4.8); Lymphocytes % 3.5 %; Mean Corpuscular HGB Conc 31.5 g/dL (30-55); Mean Corpuscular Hemoglobin 28.7 pg (27-33); Mean Corpuscular Volume 91.2 fl (82-101); Mean Platelet Volume 12.1 fL (7.4-10.4); Monocytes # 0.6 10^3/uL (0.2-0.9); Neutrophils # 10.53 10^3/uL (1.8-7.7); Neutrophils % 90.8 %; Nucleated Red Blood Cells % 0 %; Platelet Count 204 10^3/cmm (157-399); Red Blood Count 4.67 10^6/uL (3.85-5.65); Red Cell Distribution Width 14.2 % (12.1-15.1); White Blood Count 11.59 10^3/uL (3.29-11.43)
[2023-10-08 05:14] LABS: Add Urine Culture? No
[2023-10-08 05:42] LABS: Anion Gap 15.2 (5-19); Blood Urea Nitrogen 49 mg/dL (8-23); Calcium 10.2 mg/dL (8.5-10.5); Carbon Dioxide 32 mmol/L (22-29); Chloride 99 mmol/L (98-107); Creatinine Clr Calc Pharmacy 48.1764; Glucose 154 mg/dL (65-115); Magnesium 2.1 mg/dL (1.7-2.3); Osmolality Calculated 310 mOsm/kg (285-295); Phosphorus 3.5 mg/dL (2.5-4.5); Potassium 4.2 mmol/L (3.5-5.1); Sodium 142 mmol/L (136-145)
[2023-10-08 07:07] VITALS: BP 130/78; PULSE 80; RESP 17; TEMP 36.6; O2SAT 99
[2023-10-08 08:25] VITALS: PULSE 78; RESP 16; O2SAT 97
--- NOTE | 2023-10-08 09:06 | PC.CHAP ---
Pastoral Care Encounter/Spiritual Assessment Type of Contact [] Declined setter up visit [] Patient/Family/Request visit [] Outpatient visit [] Follow-up visit [] Physician referral [] Code/Alert [] Routine visit [] Staff referral [] Actively dying [x] Patient sleeping [] Family support [] [] Out of room [] Palliative care [] [] Receiving care in room [] Pre-surgical visit [] Trauma [] Long length of stay [] ICU visit [] Other: Relational/Emotional Strength [] Patient feels connected with others/family/visitors/staff [] Distress [] Loneliness/isolation [] Abandonment Spirituality of Patient [] Person of [place]anza [] Attends Buddhist of their [place] [] Believes in Prayer [] Reads Bible or Gnosticism materials [] There are 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 [] Prayer [] Active listening [] Non-anxious presence [] Spiritual/emotional support [] Crisis/trauma care [] Spiritual counseling [] Bereavement support [] Provided bereavement packet [] Provided Bible/devotional materials [] Provided toy/stuffed animal, coloring book to patient or family member [] Provided Communion [] Anointing/[place] [] Salvation [] Completed spiritual assessment [] Other: Impact on Illness or Injury [] Angry [] Fearful [] Anxious [] Often cries [] Exhaustion [] Unable to work [] Unable to attend evangelical [] Unable to walk/stand [] Unable to read [] Unable to drive [] Unable to eat/drink [] Unable to sleep [] Unable to be with family [] Patient intubated [] Other: Summary Time spent with patient
[2023-10-08] MEDS: doxycycline 100 mg Tablet PO (09:21)
[2023-10-08] MEDS: levothyroxine 125 mcg Tablet PO (09:21)
[2023-10-08] MEDS: sennosides-docusate Tablet 1 TAB PO (09:21)
[2023-10-08] MEDS: dilTIAZem 60 mg Tablet PO (09:22)
[2023-10-08] MEDS: cefTRIAXone 1,000 MG in sodium chloride 0.9% (plus) 50 ML 100 MG IV (09:22)
[2023-10-08] MEDS: apixaban 5 mg Tablet PO (09:29)
[2023-10-08 11:10] VITALS: BP 113/78; PULSE 71; RESP 17; TEMP 36.4; O2SAT 95
[2023-10-08 11:11] VITALS: O2SAT 88; O2SAT 90
--- NOTE | 2023-10-08 11:55 | PM.DCS ---
Discharge Providers Date of Admission: 10/06/23 21:54 Date of Discharge: October 08, 2023 Attending Provider at Admission: Lynnette Garner MD Attending Provider at Discharge: Casandra Marti MD Primary Care Provider: Mckay Warren DO Diagnoses at Discharge Discharge Diagnosis (1) Paroxysmal atrial fibrillation: Status: Acute (2) Hypothyroid: Status: Acute Qualifiers: Hypothyroidism type: acquired Qualified Code(s): E03.9 - Hypothyroidism, unspecified (3) Acute and chronic respiratory failure with hypercapnia: Status: Resolved (4) Peripheral edema: Status: Resolved (5) CHF exacerbation: Status: Resolved Reason for Visit Reason for Visit: COPD exacerbation Hospital Course Hospital Course Presented to the hospital with shortness of breath. Admitted for COPD exacerbation and underlying congestive heart failure exacerbation. He was given IV diuresis. Shortness of breath and pulmonary congestion resolved pretty quickly. Patient was now on room air. He is chronically power wheelchair bound. Does have a history of muscular dystrophy. Was discharged home on Lasix 20 oral daily. He was given prescription for checking his BMP in next few days to monitor potassium. Patient with history of paroxysmal atrial fibrillation, chronically sedentary in power chair wheelchair-bound at high risk of stroke. Has a high Nacho V[place]or. Was started on Eliquis during hospital stay. Patient will be sent home to follow-up with cardiology. He was also kept on BiPAP during stay which improved patient's symptoms. Patient given 2 more days of Levaquin at discharge to complete total 5-day empiric coverage for COPD exacerbation. Physical Exam Narrative: Sitting up in bed eating breakfast on room air. Says he would like to go home today. Awake and alert Appears euvolemic today. Trace to 1+ pedal edema. GCS 15 No active distress No active chest pain S1, S2 Abdomen soft Chronic dysarthria as per Urinary Catheter Management: Bonilla: Cath Placed During This Visit: yes, but has since been removed by the nurse Reason for Continuing Indwelling Catheter: Decision to DC Catheter Urinary Catheter Date of Insertion: 10/07/23 Urinary Catheter Time of Insertion: 00:10 Date Urinary Catheter Removed: 10/07/23 Time Urinary Catheter Discontinued: 13:07 Discharge Data Studies Completed and Pending Completed Studies During Hospitalization Category Date Time Status XR chest 1V portable [id number] Stat Exams 10/06/23 19:49 Completed Laboratory Results WBC 11.59 10^3/uL (3.29-11.43) H 10/08/23 04:27 RBC 4.67 10^6/uL (3.85-5.65) 10/08/23 04:27 Hgb 13.40 g/dL (11.27-16.99) 10/08/23 04:27 Hct 42.6 % (37-53) 10/08/23 04:27 MCV 91.2 fl (82-101) 10/08/23 04:27 MCH 28.7 pg (27-33) 10/08/23 04:27 MCHC 31.5 g/dL (30-55) 10/08/23 04:27 RDW 14.2 % (12.1-15.1) 10/08/23 04:27 Plt Count 204 10^3/cmm (157-399) 10/08/23 04:27 MPV 12.1 fL (7.4-10.4) H 10/08/23 04:27 Neut % (Auto) 90.8 % 10/08/23 04:27 Lymph % (Auto) 3.5 % 10/08/23 04:27 Nye % (Auto) 5.0 % 10/08/23 04:27 Eos % (Auto) 0.0 % 10/08/23 04:27 Baso % (Auto) 0.1 % 10/08/23 04:27 Neut # (Auto) 10.53 10^3/uL (1.8-7.7) H 10/08/23 04:27 Lymph # (Auto) 0.4 10^3/uL (0.8-4.8) L 10/08/23 04:27 Nye # (Auto) 0.6 10^3/uL (0.2-0.9) 10/08/23 04:27 Eos # (Auto) 0.0 10^3/uL (0.0-0.8) 10/08/23 04:27 Baso # (Auto) 0.0 10^3/uL (0.0-0.1) 10/08/23 04:27 Nucleated RBC % (auto) 0 % 10/08/23 04:27 Nucleated RBCs # 0.0 /100WBC 10/08/23 04:27 PT 14.20 SECONDS (12.1-14.9) 10/06/23 19:58 INR 1.07 (0.8-1.2) 10/06/23 19:58 D-Dimer 0.92 ug/mLFEU (0-0.59) H 10/06/23 19:58 D-Dimer Cancelled 10/06/23 19:58 Specimen Type Arterial 10/07/23 03:29 Sample Site Brachial, right 10/07/23 03:29 ABG pH 7.43 (7.35-7.45) 10/07/23 03:29 ABG pCO2 48.2 mmHg (35-45) H 10/07/23 03:29 ABG pO2 96.8 mmHg (80.0-100.0) 10/07/23 03:29 ABG PO2/FiO2 Ratio 0 10/07/23 03:29 ABG HCO3 32.2 mmol/L (22-26) H 10/07/23 03:29 ABG Base Excess 6.7 mmol/L (-2.0-2.0) H 10/07/23 03:29 Kapil Test Pos 10/07/23 03:29 Hematocrit 40.7 % (42-52) L 10/07/23 03:29 Hgb O2 Saturation 98.7 % (95-100) 10/06/23 20:09 Carboxyhemoglobin 0.2 %THgb (0.4-20.1) L 10/06/23 20:09 Methemoglobin 0.5 % (0.4-1.5) 10/06/23 20:09 Total Hemoglobin 14.1 g/dL (14-18) 10/06/23 20:09 O2 Delivery Device Bipap 10/07/23 03:29 FiO2 35.0 % 10/07/23 03:29 Transverse Abdominal Muscle Nurse ID Natanael 10/07/23 03:29 Sodium 142 mmol/L (136-145) 10/08/23 04:27 Potassium 4.2 mmol/L (3.5-5.1) 10/08/23 04:27 Chloride 99 mmol/L (98-107) 10/08/23 04:27 Carbon Dioxide 32 mmol/L (22-29) H 10/08/23 04:27 Anion Gap 15.2 (5-19) 10/08/23 04:27 BUN 49 mg/dL (8-23) H 10/08/23 04:27 Creatinine 1.2 mg/dL (0.7-1.2) 10/08/23 04:27 GFR Calculation Not Reportable 10/08/23 04:27 Glucose 154 mg/dL (65-115) H 10/08/23 04:27 Estimat Average Glucose 123 10/06/23 19:58 Hemoglobin A1c 5.9 % (4.0-6.0) 10/06/23 19:58 Calculated Osmolality 310 mOsm/kg (285-295) H 10/08/23 04:27 Calcium 10.2 mg/dL (8.5-10.5) 10/08/23 04:27 Phosphorus 3.5 mg/dL (2.5-4.5) 10/08/23 04:27 Magnesium 2.1 mg/dL (1.7-2.3) 10/08/23 04:27 Total Bilirubin 0.3 mg/dL (0.15-1.2) 10/06/23 19:58 AST 15 U/L (0-40) 10/06/23 19:58 ALT 12 U/L (0-41) 10/06/23 19:58 Alkaline Phosphatase 156 U/L (40-130) H 10/06/23 19:58 C-Reactive Protein 3.9 mg/L (0.0-4.9) 10/07/23 04:26 NT-Pro-B Natriuret Pep 1122 pg/mL (0-450) H 10/06/23 19:58 Total Protein 7.0 g/dL (6.6-8.7) 10/06/23 19:58 Albumin 4.3 g/dL (3.5-5.2) 10/06/23 19:58 Globulin 2.7 g/dL (1.3-4.6) 10/06/23 19:58 Urine Color Colorless (Yellow) 10/08/23 03:04 Urine Appearance Clear (CLEAR) 10/08/23 03:04 Urine pH 7 (5-7) 10/08/23 03:04 Ur Specific [place] 1.005 (1.005-1.030) 10/08/23 03:04 Urine Protein Neg (Negative) 10/08/23 03:04 Urine Glucose (UA) Norm (Normal) 10/08/23 03:04 Urine Ketones Negative (Negative) 10/08/23 03:04 Urine Blood Neg (Negative) 10/08/23 03:04 Urine Nitrate Negative (Negative) 10/08/23 03:04 Urine Bilirubin Neg (Negative) 10/08/23 03:04 Urine Urobilinogen Neg mg/dL (Negative) 10/08/23 03:04 Ur Leukocyte Esterase Negative (Negative) 10/08/23 03:04 Urine RBC None /hpf (0-2) 10/08/23 03:04 Urine WBC None /hpf (0-5) 10/08/23 03:04 Ur Squamous Epith Cells None /hpf (0-5) 10/08/23 03:04 Amorphous Sediment Not Reportable 10/08/23 03:04 Urine Bacteria None /hpf (NONE) 10/08/23 03:04 Influenza Type A Ag negative (Negative) 10/06/23 20:07 Influenza Type B Ag negative (Negative) 10/06/23 20:07 SARS-CoV-2 Ag (Rapid) Negative (Negative) 10/06/23 20:07 Vitals Last Vital Signs Temp 97.6 F 10/08/23 11:10 Pulse 71 10/08/23 11:10 Resp 17 10/08/23 11:10 BP 113/78 10/08/23 11:10 Pulse Ox 90 10/08/23 11:11 O2 Del Method Nasal Cannula 10/08/23 11:10 O2 Flow Rate 2 10/08/23 11:11 FiO2 3.5 10/07/23 20:43 Discharge Plan Discharge Patient Disposition: Home Condition: Stable Prescriptions: New Eliquis 5 mg Tablet 5 mg PO BID@0900,2100 Qty: 60 0RF levofloxacin 500 mg tablet 500 mg PO DAILY 3 Days Qty: 3 0RF Lasix 20 mg tablet 20 mg PO DAILY Qty: 30 0RF Continued aspirin 325 mg tablet 325 mg PO DAILY clotrimazole 1 % cream 1 applic topical DAILY Anoro Ellipta 62.5-25 mcg/actuation blister with device 1 inh inhalation DAILY Qty: 60 6RF Rx Instructions: 340 B diltiazem HCl 60 mg tablet 60 mg PO TID Qty: 300 3RF levothyroxine 125 mcg tablet See Rx Instructions .ROUTE .COMPLEX Qty: 90 3RF Dose Instruction: TAKE 1 TABLET BY MOUTH DAILY Rx Instructions: TAKE 1 TABLET BY MOUTH DAILY (DME) AffloVest See Rx Instructions .Route .MEDSUPPLY Qty: 1 0RF Rx Instructions: High frequency chest wall oscillation at 5Hz-20Hz for 30 minutes twice daily. ipratropium bromide 0.02 % Solution 0.5 mg INHALATION Q6H PRN (Reason: Shortness Of Breath) Rx Instructions: unknown frequency; unknown if PRN or scheduled ketoconazole 2 % cream 1 applic TOPICAL BID Discharge Orders: Discharge Order (Routine); Ordered 10/08/23 Ordered By: Casandra Marti Other Ambulatory Orders: DME: Miscellaneous (Order) Location: None Selected Ordered By: Casandra Marti DME: Oxygen (Order) Location: None Selected Ordered By: Casandra Mackeya Basic Metabolic Panel (Q7D) Timeframe: 20231015 Facility: [facility] - Location: Lab - Main Lab Ordered By: Casandra Kaia Basic Metabolic Panel (Q7D) Timeframe: 20231022 Facility: [facility] - Location: Lab - Main Lab Ordered By: Casandra Kaia Basic Metabolic Panel (Q7D) Timeframe: 20231029 Facility: [facility] - Location: Lab - Main Lab Ordered By: Casandra Marti Referrals: Sal Nieves MD [Physician] - 10/26/23 2:00 pm () Mckay Warren DO [Primary Care Provider] - 10/14/23 11:00 am () Discharge Diet: Usual diet Discharge Activity: Resume usual activity and Oxygen as instructed Patient Instructions: Furosemide (By mouth) (Lasix), Levofloxacin (By mouth) (Levaquin, Levaquin Leva-chani), Apixaban (By mouth) (Eliquis), Heart Failure (DC), CHF Stoplight, Opioid Safety Discharge Attestations Time Spent in Discharge Care*: greater than 30 min Quality Metrics Clinical Quality Measures [ No reported AMI, CVA or VTE this stay] Coding Level of Care Code Acute Code for Chg Fwd Diagnoses Paroxysmal atrial fibrillation I48.0 Acquired hypothyroidism E03.9 Hypothyroidism type: acquired Acute and chronic respiratory failure with hypercapnia J96.22 Peripheral edema R60.0 CHF exacerbation I50.9
== END 2023-10-08 15:00 | disposition home or self-care (01) | DRG 190 ==
LOC: ER 20:58 → MEDSURG 22:07
PROVIDERS: Admitting Provider Internal Medicine; Emergency Provider Emergency Medicine; PCP Family Medicine; Visit Provider Internal Medicine
DX: J44.1 Chronic obstructive pulmonary disease with (acute) exacerbation (principal); I50.33 Acute on chronic diastolic (congestive) heart failure; J96.01 Acute respiratory failure with hypoxia; J96.02 Acute respiratory failure with hypercapnia; N17.9 Acute kidney failure, unspecified; I11.0 Hypertensive heart disease with heart failure; E03.9 Hypothyroidism, unspecified; E87.5 Hyperkalemia; R47.1 Dysarthria and anarthria; G71.00 Muscular dystrophy, unspecified; Z99.81 Dependence on supplemental oxygen; Z99.3 Dependence on wheelchair; Z87.891 Personal history of nicotine dependence
CPT/HCPCS: 36415; 36600; 51702; 71045; 80048; 80053; 81001; 82803; 82805; 83036; 83735; 83880; 84100; 85025; 85378; 85610; 86140; 87426; 87804; 93005; 94640; 94660; 94760; 96365; 96375; 99291; J0696; J1940; J2930

== ENCOUNTER → 2023-10-15 11:13 | Outpatient (BNVA) | payer MEDICARE, SELFPAY | PROVIDERS: PCP Family Medicine; Visit Provider Family Medicine | DX: I50.9 Heart failure, unspecified (principal); Z79.899 Other long term (current) drug therapy | CPT/HCPCS: 80048 ==

== ENCOUNTER → 2023-10-22 10:13 | Outpatient (BNVA) | payer MEDICARE, SELFPAY | PROVIDERS: PCP Family Medicine; Visit Provider Internal Medicine Pulmonary Disease | DX: R06.00 Dyspnea, unspecified (principal); J44.9 Chronic obstructive pulmonary disease, unspecified; K44.9 Diaphragmatic hernia without obstruction or gangrene; I27.20 Pulmonary hypertension, unspecified; J96.12 Chronic respiratory failure with hypercapnia; J98.6 Disorders of diaphragm; J98.4 Other disorders of lung; G71.00 Muscular dystrophy, unspecified; R60.0 Localized edema; Z87.891 Personal history of nicotine dependence | CPT/HCPCS: 99204; 99214 ==

== ENCOUNTER → 2023-12-07 14:20 | Outpatient (BNVA) | payer MEDICARE, SELFPAY | PROVIDERS: PCP Family Medicine; Visit Provider Internal Medicine Pulmonary Disease | DX: J96.12 Chronic respiratory failure with hypercapnia (principal); J44.9 Chronic obstructive pulmonary disease, unspecified; K44.9 Diaphragmatic hernia without obstruction or gangrene; M25.471 Effusion, right ankle; M25.472 Effusion, left ankle; I27.20 Pulmonary hypertension, unspecified; J98.6 Disorders of diaphragm; J98.4 Other disorders of lung; G71.00 Muscular dystrophy, unspecified; Z87.891 Personal history of nicotine dependence | CPT/HCPCS: 99214 ==

== ENCOUNTER 2023-12-30 22:40 | Emergency (ER) | payer MEDICARE, SELFPAY ==
[2023-12-30 22:40] VITALS: BP 156/113; PULSE 107; RESP 18; TEMP 36.7; O2SAT 96; BMI 23.7
--- NOTE | 2023-12-30 22:44 | XRR_ITS ---
PROCEDURE INFORMATION: Exam: XR Chest Exam date and time: 12/30/2023 10:46 PM Age: 83 years old Clinical indication: Shortness of breath; Prior surgery; Surgery date: 6+ months; Surgery type: Bypass TECHNIQUE: Imaging protocol: Radiologic exam of the chest. Views: 1 view. COMPARISON: CR XR chest 1V portable [id number] 10/06/2023 8:01 PM FINDINGS: Lungs: Emphysematous changes. Right lower lobe atelectasis. Pleural spaces: Trace right pleural effusion. Heart/Mediastinum: Unremarkable. No cardiomegaly. Bones/joints: Sternotomy wires. XR/XR chest 1V portable [id number] IMPRESSION: 1. Emphysematous changes. 2. Trace right pleural effusion. 3. Right lower lobe atelectasis. 4. Sternotomy wires.
--- NOTE | 2023-12-30 22:44 | ECG_ITS ---
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 Measurements Intervals [place] Rate: 98 P: 0 WI: 0 QRS: 69 QRSD: 106 T: 60 QT: 360 QTc: 461 Interpretive Statements ATRIAL FIBRILLATION NONSPECIFIC ST & T-WAVE ABNORMALITY ABNORMAL RHYTHM ECG Compared to ECG 10/06/2023 20:05:44 No significant changes Electronically Signed On 12-31-2023 13:40:32 CDT by Pedrito Carranza M.D. [email or web address]
[2023-12-30 23:06] LABS: ABG PCO2 46.3 mmHg (35-45); ABG PH Result 7.39 (7.35-7.45); Arterial Blood Gas Hematocrit 43.5 % (42-52); Base Excess ABG 2.6 mmol/L (-2.0-2.0); Blood Gas Allen Test Pos; Blood Gas Operator Identificat CL; Blood Gas Sample Site Radial, right; Blood Gas Sample Type Arterial; Carboxyhemoglobin 1.6 %THgb (0.4-20.1); HCO3 ABG 28.3 mmol/L (22-26); Ionized Calcium Level - ABG 1.3 mmol/L (1.1-1.4); Methemoglobin 0.5 % (0.4-1.5); Oxygen Device NC; Oxygen Saturation ABG 98.1; PO2 ABG 92.3 mmHg (80.0-100.0); PO2 FiO2 Ratio Arterial Blood 0; Potassium Level - ABG 4.1 mmol/L (3.5-5.0); Total Hemoglobin 14.2 g/dL (14-18)
--- NOTE | 2023-12-30 23:08 | ED_ITS ---
HPI - SOB/Dyspnea 2 General: Chief Complaint: Shortness of Breath/Dyspnea Stated Complaint: SOB Time Seen by Provider: 12/30/23 22:43 History of Present Illness: HPI Narrative: 83-year-old man with history of deafness , atrial fibrillation on Eliquis, hypothyroidism, asthma/COPD, coronary artery disease, hyperlipidemia, BPH, hypertension who presents to the emergency room with shortness of breath. He says he is allergic to albuterol. He says he just gets sick. He did take a breathing treatment by basic responders prior to coming here. He has not been having chest pain. No altered mental status. Relatively little wheeze on exam. No lower extremity swelling. No fevers. He has had a cough Review of Systems 2 Narrative: Constitutional symptoms: Negative except as documented in HPI. Skin symptoms: Negative except as documented in HPI. Eye symptoms: Negative except as documented in HPI. ENMT symptoms: Negative except as documented in HPI. Respiratory symptoms: Negative except as documented in HPI. Cardiovascular symptoms: Negative except as documented in HPI. Gastrointestinal symptoms: Negative except as documented in HPI. Genitourinary symptoms: Negative except as documented in HPI. Musculoskeletal symptoms: Negative except as documented in HPI. Neurologic symptoms: Negative except as documented in HPI. Psychiatric symptoms: Negative except as documented in HPI. Endocrine symptoms: Negative except as documented in HPI. 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 Skin: Warm, dry. Head: Normocephalic, atraumatic. Neck: Supple, trachea midline. Eye: Extraocular movements are intact. Ears, nose, mouth and throat: mucosa moist. Cardiovascular: Irregularly irregular, Normal peripheral perfusion. Respiratory: Lungs are clear to auscultation, respirations are non-labored, breath sounds are equal, Symmetrical chest wall expansion. Gastrointestinal: Soft, Nontender, Non distended, Normal bowel sounds. Musculoskeletal: Normal ROM, no deformity. Neurological: Alert and oriented, No focal neurological deficit observed. Psychiatric: Cooperative, appropriate mood & affect. Course 2 Vital Signs: Vital signs: Vital Signs Temperature 98.0 F 12/30/23 22:40 Pulse Rate 89 12/31/23 01:51 Respiratory Rate 20 H 12/31/23 01:51 Blood Pressure 124/86 12/31/23 01:51 Pulse Oximetry 96 12/31/23 01:51 Oxygen Delivery Me thod Room Air 12/30/23 22:40 MDM - SOB/Dyspnea Medical Decision Making Differential diagnosis for patient with shortness of breath includes but is not limited to and based on the above HPI, review of systems and physical exam: Pneumonia. Bronchitis. Asthma or COPD with acute exacerbation. Acute coronary syndrome / VT. Pulmonary embolism. Anxiety. Congestive heart failure. Viral infections including influenza and Covid-19. Atrial fibrillation. Anxiety. Pleural effusion. Pneumothorax. Workup: Lab work, chest X-ray and EKG ordered to evaluate, rule in and rule out above pathologies EKG: Time 2308. Rate 98. Atrial fibrillation with controlled rate, No ST-T changes, no ectopy, This was reviewed and interpreted by myself the ER physician at 2311 Chest x-ray: No acute process. No infiltrate. No pneumothorax. No cardiomegaly. This was reviewed and interpreted by myself the ER physician. AB.3 on room air. No CO2 retention. No acidosis. Good oxygenation. Lab Review: Laboratory results were reviewed and interpreted by myself the emergency room physician. No leukocytosis. White count is 7. No anemia. Hemoglobin is 13.8. BUN and creatinine are 27 and 1. proBNP is slightly elevated but the same as previous visits. I reviewed the patient's medical record. Reexamination: Patient remained stable. No increased work of breathing. He has no oxygen requirements. He says he still does not feel very well. Assessment and plan: COPD with acute exacerbation -Solu-Medrol but no further albuterol because patient says he is allergic - Discharged home - Discussed findings and plan with patient. Answered any questions. - All laboratory values were reviewed and interpreted personally by myself, the ER physician - All imaging was reviewed and interpreted personally by myself, the ER physician. - Evaluation and treatment of this problem were appropriate in the emergency setting Lab Data 12/30/23 23:24 12/30/23 23:24 Labs/Radiology: Radiology Impressions Chest X-Ray 12/30/23 22:44 IMPRESSION: 1. Emphysematous changes. 2. Trace right pleural effusion. 3. Right lower lobe atelectasis. 4. Sternotomy wires. Laboratory Results WBC 6.98 10^3/uL (3.29-11.43) 12/30/23 23:24 RBC 4.74 10^6/uL (3.85-5.65) 12/30/23 23:24 Hgb 13.80 g/dL (11.27-16.99) 12/30/23 23:24 Hct 43.9 % (37-53) 12/30/23 23:24 MCV 92.6 fl (82-101) 12/30/23 23:24 MCH 29.1 pg (27-33) 12/30/23 23:24 MCHC 31.4 g/dL (30-55) 12/30/23 23:24 RDW 14.1 % (12.1-15.1) 12/30/23 23:24 Plt Count 223 10^3/cmm (157-399) 12/30/23 23:24 MPV 11.3 fL (7.4-10.4) H 12/30/23 23:24 Neut % (Auto) 71.8 % 12/30/23 23:24 Lymph % (Auto) 12.8 % 12/30/23 23:24 [place] % (Auto) 12.0 % 12/30/23 23:24 Eos % (Auto) 2.7 % 12/30/23 23:24 Baso % (Auto) 0.6 % 12/30/23 23:24 Neut # (Auto) 5.01 10^3/uL (1.8-7.7) 12/30/23 23:24 Lymph # (Auto) 0.9 10^3/uL (0.8-4.8) 12/30/23 23:24 [place] # (Auto) 0.8 10^3/uL (0.2-0.9) 12/30/23 23:24 Eos # (Auto) 0.2 10^3/uL (0.0-0.8) 12/30/23 23:24 Baso # (Auto) 0.0 10^3/uL (0.0-0.1) 12/30/23 23:24 Nucleated RBC % (auto) 0 % 12/30/23 23:24 Nucleated RBCs # 0.0 /100WBC 12/30/23 23:24 Specimen Type Arterial 12/30/23 22:55 Sample Site Radial, right 12/30/23 22:55 ABG pH 7.39 (7.35-7.45) 12/30/23 22:55 ABG pCO2 46.3 mmHg (35-45) H 12/30/23 22:55 ABG pO2 92.3 mmHg (80.0-100.0) 12/30/23 22:55 ABG PO2/FiO2 Ratio 0 12/30/23 22:55 ABG HCO3 28.3 mmol/L (22-26) H 12/30/23 22:55 ABG O2 Saturation 98.1 12/30/23 22:55 ABG Base Excess 2.6 mmol/L (-2.0-2.0) H 12/30/23 22:55 Kapil Test Pos 12/30/23 22:55 Hematocrit 43.5 % (42-52) 12/30/23 22:55 Hgb O2 Saturation 96.0 % (95-100) 12/30/23 22:55 Carboxyhemoglobin 1.6 %THgb (0.4-20.1) 12/30/23 22:55 Methemoglobin 0.5 % (0.4-1.5) 12/30/23 22:55 Total Hemoglobin 14.2 g/dL (14-18) 12/30/23 22:55 Sodium 140.0 mmol/L (131-143) 12/30/23 22:55 Potassium 4.1 mmol/L (3.5-5.0) 12/30/23 22:55 Glucose 115.0 mg/dL (70-115) 12/30/23 22:55 Ionized Calcium 1.3 mmol/L (1.1-1.4) 12/30/23 22:55 O2 Delivery Device Nc 12/30/23 22:55 FiO2 3.0 % 12/30/23 22:55 Gas Pumping Station Operator ID Cl 12/30/23 22:55 Sodium 143 mmol/L (136-145) 12/30/23 23:24 Potassium 4.7 mmol/L (3.5-5.1) 12/30/23 23:24 Chloride 103 mmol/L (98-107) 12/30/23 23:24 Carbon Dioxide 30 mmol/L (22-29) H 12/30/23 23:24 Anion Gap 14.7 (5-19) 12/30/23 23:24 BUN 27 mg/dL (8-23) H 12/30/23 23:24 Creatinine 1.0 mg/dL (0.7-1.2) 12/30/23 23:24 GFR Calculation Not Reportable 12/30/23 23:24 Glucose 110 mg/dL (65-115) 12/30/23 23:24 Calculated Osmolality 302 mOsm/kg (285-295) H 12/30/23 23:24 Lactic Acid 1.0 mmol/L (0.5-2.2) 12/30/23 23:30 Calcium 10.0 mg/dL (8.5-10.5) 12/30/23 23:24 Total Bilirubin 0.3 mg/dL (0.15-1.2) 12/30/23 23:24 AST 12 U/L (0-40) 12/30/23 23:24 ALT 9 U/L (0-41) 12/30/23 23:24 Alkaline Phosphatase 132 U/L (40-130) H 12/30/23 23:24 Troponin T Baseline 33 ng/L (0-15) H 12/30/23 23:24 Troponin T 120 Minute 32.39 ng/L (0-15) H 12/31/23 01:06 Delta Troponin T -0.61 ABS# (0-10) L 12/31/23 01:06 C-Reactive Protein 3.2 mg/L (0.0-4.9) 12/30/23 23:24 NT-Pro-B Natriuret Pep 1159 pg/mL (0-450) H 12/30/23 23:24 Total Protein 6.6 g/dL (6.6-8.7) 12/30/23 23:24 Albumin 4.0 g/dL (3.5-5.2) 12/30/23 23:24 Globulin 2.6 g/dL (1.3-4.6) 12/30/23 23:24 XR interpretation done by ED provider, pending radiology final review Discharge Plan Discharge Patient Disposition: Home Clinical Impression: Acute exacerbation of chronic obstructive airways disease Condition: Stable Prescriptions: New doxycycline hyclate 100 mg capsule 100 mg PO BID 7 Days Qty: 14 0RF prednisone 20 mg tablet 60 mg PO DAILY 5 Days Qty: 15 0RF No Action Lasix 20 mg tablet 20 mg PO DAILY PRN (Reason: edema) Qty: 30 2RF Eliquis 5 mg tablet 5 mg PO BID@0900,2100 Qty: 60 0RF clotrimazole 1 % cream 1 applic topical DAILY levothyroxine 125 mcg tablet See Rx Instructions .ROUTE .COMPLEX Qty: 90 3RF Dose Instruction: TAKE 1 TABLET BY MOUTH DAILY Rx Instructions: TAKE 1 TABLET BY MOUTH DAILY levalbuterol HCl 0.63 mg/3 mL solution for nebulization 0.63 mg inhalation TID PRN (Reason: shortness of breath or wheezing) Qty: 270 6RF Anoro Ellipta 62.5-25 mcg/actuation blister with device 1 inh inhalation DAILY Qty: 60 6RF Rx Instructions: 340 B (DME) AffloVest See Rx Instructions .Route .MEDSUPPLY Qty: 1 0RF Rx Instructions: High frequency chest wall oscillation at 5Hz-20Hz for 30 minutes twice daily. ipratropium bromide 0.02 % Solution 0.5 mg INHALATION Q6H PRN (Reason: Shortness Of Breath) Rx Instructions: unknown frequency; unknown if PRN or scheduled ketoconazole 2 % cream 1 applic TOPICAL BID Discharge Orders: Discharge ED (Routine); Ordered 12/31/23 Ordered By: Aubrie Morrissey Referrals: Mckay Warren DO [Primary Care Provider] - 1-3 days Discharge Diet: Usual diet Discharge Activity: Increase activity as tolerated Patient Instructions: COPD (Chronic Obstructive Pulmonary Disease) (ED) Activity Restrictions/Additional Instructions: Thank you for choosing [facility] for your healthcare needs today. Please realize this is an emergency room and that we are providing you with a medical screening exam and this may not be complete and all inclusive of all the testing and or work up that you may need to determine your ailment or severity of your illness. You have been screened and evaluated and felt safe for discharge. Health conditions do change or evolve sometimes and as such it is important that you follow up with your Primary Doctor to be re checked, 3-5 days is a general good time frame for follow up. 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
[2023-12-30] MEDS: methylPREDNISolone sod succ 125 mg/2 mL INJ IVP (23:30)
[2023-12-30 23:33] LABS: Basophils % 0.6 %; Eosinophils # 0.2 10^3/uL (0.0-0.8); Eosinophils % 2.7 %; Hematocrit 43.9 % (37-53); Lymphocytes # 0.9 10^3/uL (0.8-4.8); Lymphocytes % 12.8 %; Mean Corpuscular HGB Conc 31.4 g/dL (30-55); Mean Corpuscular Hemoglobin 29.1 pg (27-33); Mean Corpuscular Volume 92.6 fl (82-101); Mean Platelet Volume 11.3 fL (7.4-10.4); Monocytes # 0.8 10^3/uL (0.2-0.9); Neutrophils # 5.01 10^3/uL (1.8-7.7); Neutrophils % 71.8 %; Nucleated Red Blood Cells % 0 %; Platelet Count 223 10^3/cmm (157-399); Red Blood Count 4.74 10^6/uL (3.85-5.65); Red Cell Distribution Width 14.1 % (12.1-15.1); White Blood Count 6.98 10^3/uL (3.29-11.43)
[2023-12-30 23:53] LABS: Troponin(5th) Baseline 33 ng/L (0-15)
[2023-12-31] LABS: Alanine Aminotransferase 9 U/L (0-41); Alkaline Phosphatase 132 U/L (40-130); Anion Gap 14.7 (5-19); Aspartate Amino Transferase 12 U/L (0-40); Blood Urea Nitrogen 27 mg/dL (8-23); C Reactive Protein 3.2 mg/L (0.0-4.9); Carbon Dioxide 30 mmol/L (22-29); Chloride 103 mmol/L (98-107); Creatinine Clr Calc Pharmacy 59.8214; Globulin 2.6 g/dL (1.3-4.6); Glucose 110 mg/dL (65-115); Osmolality Calculated 302 mOsm/kg (285-295); Potassium 4.7 mmol/L (3.5-5.1); Sodium 143 mmol/L (136-145); Total Bilirubin 0.3 mg/dL (0.15-1.2); Total Protein 6.6 g/dL (6.6-8.7)
[2023-12-31 00:02] LABS: NT Pro B Type Natriuretic Pept 1159 pg/mL (0-450)
--- NOTE | 2023-12-31 01:07 | ECG_ITS ---
[facility] Test Date: 2023-12-31 Pat Name: Jennifer Gotti Department: Room: Gender: Male Patient Care Specialist: : 1940 Requested By: Aubrie Quezada Order Number: [id number] Jerrod MD: Pedrito Carranza M.D. Measurements Intervals [place] Rate: 83 P: 0 LA: 0 QRS: 76 QRSD: 116 T: 73 QT: 365 QTc: 430 Interpretive Statements ATRIAL FIBRILLATION ABNORMAL RHYTHM ECG Compared to ECG 12/30/2023 23:08:38 T-wave abnormality no longer present Electronically Signed On 12-31-2023 14:00:59 CDT by Pedrito Carranza M.D. [email or web address]
[2023-12-31 01:51] VITALS: BP 124/86; PULSE 89; RESP 20; O2SAT 96
[2023-12-31 01:51] LABS: Troponin 5 2HR 32.39 ng/L (0-15)
[2023-12-31 02:01] LABS: Troponin 5 2HR Delta -0.61 ABS# (0-10)
[2023-12-31 02:56] VITALS: BP 132/94; PULSE 84; RESP 20; O2SAT 96
== END 2023-12-31 02:59 | disposition home or self-care (01) ==
PROVIDERS: Emergency Provider Emergency Medicine; PCP Family Medicine
DX: J44.1 Chronic obstructive pulmonary disease with (acute) exacerbation (principal); Z79.01 Long term (current) use of anticoagulants; I48.91 Unspecified atrial fibrillation; I10 Essential (primary) hypertension; E78.5 Hyperlipidemia, unspecified; I25.10 Atherosclerotic heart disease of native coronary artery without angina pectoris; Z87.891 Personal history of nicotine dependence
CPT/HCPCS: 71045; 80051; 80053; 82330; 82805; 83605; 83880; 84484; 85025; 86140; 87040; 93005; 96374; 99285; J2919

== ENCOUNTER 2024-03-01 14:10 | Emergency (ER) | payer MEDICARE, SELFPAY ==
--- NOTE | 2024-03-01 14:13 | XRR_ITS ---
PROCEDURE INFORMATION: Exam: XR Chest Exam date and time: 03/01/2024 2:46 PM Age: 83 years old Clinical indication: Other: Weakness TECHNIQUE: Imaging protocol: Radiologic exam of the chest. Views: 1 view. COMPARISON: CR XR chest 1V portable [id number] 12/30/2023 10:46 PM FINDINGS: Lungs: The lungs appear hyperinflated and hyperlucent in the upper lobes suggesting underlying COPD. Stable scar in the left upper lobe. Stable chronic fibrotic stranding at the lung bases. Pleural spaces: Unremarkable. No pleural effusion. No pneumothorax. Heart/Mediastinum: The heart is normal in size. Prior CABG. Bones/joints: Previous median sternotomy. XR/XR chest 1V portable [id number] IMPRESSION: 1. COPD and mild pulmonary fibrosis. 2. Prior median sternotomy/CABG.
--- NOTE | 2024-03-01 14:13 | ECG_ITS ---
[facility] Test Date: 2024-03-01 Pat Name: Jennifer Gotti Department: Room: Gender: Male Building Inspection Engineer: : 1940 Requested By: Aubrie Quezada Order Number: [id number] Jerrod MD: Sal Nieves M.D. Measurements Intervals [place] Rate: 58 P: 0 ID: 0 QRS: 70 QRSD: 104 T: 49 QT: 431 QTc: 425 Interpretive Statements ATRIAL FIBRILLATION WITH SLOW VENTRICULAR RESPONSE POSSIBLE LATERAL MYOCARDIAL INFARCTION , OF INDETERMINATE AGE [30 ms Q WAVE IN I/aVL/V5/V6] POSSIBLE INFERIOR MYOCARDIAL INFARCTION , PROBABLY OLD [30 ms Q WAVE IN II/aVF] MODERATE T-WAVE ABNORMALITY, CONSIDER ANTERIOR ISCHEMIA [-0.1+ mV T-WAVE IN V3/V4] Compared to ECG 12/31/2023 01:07:34 Myocardial infarct finding now present T-wave abnormality now present Possible ischemia now present Electronically Signed On 03-02-2024 0:19:25 CDT by Sal Nieves M.D. [email or web address]
--- NOTE | 2024-03-01 14:13 | CT_ITS ---
WS: [id number] CT HEAD NONCONTRAST HISTORY: Encephalopathy, altered mental status TECHNIQUE: Contiguous axial imaging performed through the brain in 2.0 mm imaging. Bone and soft tiss ue windows. Sagittal and coronal reformats reviewed. All CT scans at [facility] use at least one of these dose optimization techniques: automated exposure control; mA and/or kV adjustment per pa tient size (includes targeted exams where dose is matched to clinical indication); or iterative recon struction. DLP: 1221.78 mGy.cm COMPARISON: 09/18/2007 No acute intracranial hemorrhage, midline shift or mass effect. Moderate cerebral and cerebellar atrophy has progressed since 2007. Mild small vessel ischemic diseas e. Small lacunar infarct in the RIGHT basal ganglia. Tiny lacunar infarct in the anterior limb of the LEFT internal capsule. Ventricles: Normal size with no hydrocephalus. No inferior displacement of cerebellar tonsils. Paranasal sinuses: As visualized are clear. Mastoid air cells: Mild coalescence and increased attenuation within the mastoid air cells, LEFT grea ter than RIGHT. Increased soft tissue along the LEFT internal auditory canal is new. Calvarium and scalp: Skull is intact with no soft tissue edema or swelling. CT/CT head wo con* [id number] IMPRESSION: 1. No acute intracranial hemorrhage or edema. 2. Progression of cerebral and cerebellar atrophy since 09/18/2007 with a few sm all lacunar infarcts. 3. Cerebellar atrophy has become more prominent than the cerebral atrophy.
[2024-03-01 14:15] VITALS: BP 103/70; PULSE 58; RESP 18; TEMP 36.4; O2SAT 96
--- NOTE | 2024-03-01 14:16 | ED_ITS ---
HPI - Altered Mental Status 2 General: Chief Complaint: Altered Mental Status Stated Complaint: AMS Time Seen by Provider: 03/01/24 14:11 History of Present Illness: 83-year-old man with a history of A-fib on Eliquis, coronary artery disease, hyperlipidemia and history of stroke with residual speech difficulties. He reports to the ER by ambulance today with concerns for him being spaced out according to his . He says he feels at his baseline. He says he does not feel well but nothing new. He says he hurts all over. Related Data Home Medications Medication Instructions Recorded Confirmed clotrimazole 1 % topical cream 1 applic topical DAILY 08/04/23 03/01/24 ipratropium bromide 0.02 % 0.5 mg inhalation Q6H PRN 10/07/23 03/01/24 solution for inhalation Shortness Of Breath ketoconazole 2 % topical cream 1 applic topical BID 10/07/23 03/01/24 Previous Rx's Medication Instructions Recorded levothyroxine 125 mcg tablet See Rx Instructions .Route 07/29/23 .COMPLEX #90 tabs AffloVest #1 ea 08/10/23 apixaban 5 mg tablet (Eliquis) 5 mg PO BID@0900,2100 #60 tabs 10/22/23 furosemide 20 mg tablet (Lasix) 20 mg PO DAILY PRN edema #30 tabs 10/22/23 levalbuterol HCl 0.63 mg/3 mL 0.63 mg (3 mL) inhalation TID PRN 12/07/23 solution for nebulization shortness of breath or wheezing #270 mL umeclidinium 62.5 mcg-vilanterol 1 inh inhalation DAILY #60 ea 12/07/23 25 mcg/actuation powdr for inhalation (Anoro Ellipta) omeprazole 40 mg capsule,delayed 40 mg PO BID 8 weeks #112 caps 02/01/24 release cephalexin 500 mg capsule 500 mg PO Q8H 7 days #21 caps 02/14/24 prednisone 20 mg tablet 40 mg (2 x 20 mg) PO DAILY 5 days 02/14/24 #10 tabs Allergies Allergy/AdvReac Type Severity Reaction Status Date / Time albuterol Allergy Unknown Verified 12/30/23 22:47 Review of Systems 2 Narrative: Constitutional symptoms: Negative except as documented in HPI. Skin symptoms: Negative except as documented in HPI. Eye symptoms: Negative except as documented in HPI. ENMT symptoms: Negative except as documented in HPI. Respiratory symptoms: Negative except as documented in HPI. Cardiovascular symptoms: Negative except as documented in HPI. Gastrointestinal symptoms: Negative except as documented in HPI. Genitourinary symptoms: Negative except as documented in HPI. Musculoskeletal symptoms: Negative except as documented in HPI. Neurologic symptoms: Negative except as documented in HPI. Psychiatric symptoms: Negative except as documented in HPI. Endocrine symptoms: Negative except as documented in HPI. 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 Skin: Warm, dry. Head: Normocephalic, atraumatic. Neck: Supple, trachea midline. Eye: Extraocular movements are intact. Ears, nose, mouth and throat: mucosa moist. Cardiovascular: Regular, Normal peripheral perfusion. Respiratory: Lungs are clear to auscultation, respirations are non-labored, breath sounds are equal, Symmetrical chest wall expansion. Gastrointestinal: Soft, Nontender, Non distended Musculoskeletal: Normal ROM, no deformity. Neurological: Alert and oriented, no apparent new deficits. He does have residual slurred speech Psychiatric: Cooperative, appropriate mood & affect. Course 2 Vital Signs: Vital signs: Vital Signs Temperature 97.5 F L 03/01/24 14:15 Pulse Rate 53 L 03/01/24 16:30 Respiratory Rate 18 03/01/24 14:15 Blood Pressure 133/82 03/01/24 16:30 Pulse Oximetry 93 03/01/24 16:30 Oxygen Delivery Me thod Room Air 03/01/24 16:30 MDM - Altered Mental Status Medical Decision Making Medical decision making: Differential diagnosis including but not limited to and based on the above HPI, review of systems and physical exam: In this patient with altered mental status: Stroke. Hypoglycemia. Metabolic encephalopathy. Infections such as pneumonia, urinary tract infection, Covid-19, Influenza. Electrolyte abnormalities such as hypernatremia. Renal failure / uremia. Hepatic encephalopathy. Hypoxemia. Hypercapnic respiratory failure. Psychosis. Drug or alcohol intoxication. Medication overdose. Orders placed to evaluate differential diagnosis based on the above differential, HPI and physical exam EKG: Time 1531. Rate 58. Atrial fibrillation with controlled rate, No ST-T changes, no ectopy, This was reviewed and interpreted by myself the ER physician at 1531. EKG: Time 1704. Rate 64. Atrial fibrillation with controlled rate, No ST-T changes, no ectopy, This was reviewed and interpreted by myself the ER physician at 1706 Chest x-ray: Emphysematous changes. Sternotomy wires. No acute process. No infiltrate. No pneumothorax. This was reviewed and interpreted by myself the ER physician. CT head: Progression of cerebral and cerebellar atrophy. Also worsening cerebellar atrophy. No acute intracranial process. no intracranial hemorrhage, no evidence of infarct. no evidence of acute fracture.This was reviewed and interpreted by myself the ER physician. Lab Review: Laboratory results were reviewed and interpreted by myself the emergency room physician. Lab work is unremarkable. BUN/creatinine are at his baseline at 26 and 1.2. No leukocytosis. No anemia. Troponin is slightly elevated but this seems to be his baseline. No chest pain. No EKG changes. I reviewed the patient's medical record. Reexamination: Patient remained stable. No increased work of breathing. No altered mental status. No focal motor deficits. Spoke with patient's . She is concerned about his toe. He does have a lot of bruising but does not appear overtly infected. He is on antibiotics for this. Assessment and plan: Altered mental status, resolved - Discharged home - Discussed findings and plan with patient. Answered any questions. - All laboratory values were reviewed and interpreted personally by myself, the ER physician - All imaging was reviewed and interpreted personally by myself, the ER physician. - Evaluation and treatment of this problem were appropriate in the emergency setting Lab Data 03/01/24 14:57 03/01/24 14:57 Radiology Impressions Chest X-Ray 03/01/24 14:13 IMPRESSION: 1. COPD and mild pulmonary fibrosis. 2. Prior median sternotomy/CABG. Head CT 03/01/24 14:13 IMPRESSION: 1. No acute intracranial hemorrhage or edema. 2. Progression of cerebral and cerebellar atrophy since 09/18/2007 with a few small lacunar infarcts. 3. Cerebellar atrophy has become more prominent than the cerebral atrophy. Laboratory Results WBC 8.48 10^3/uL (3.29-11.43) 03/01/24 14:57 RBC 4.98 10^6/uL (3.85-5.65) 03/01/24 14:57 Hgb 14.40 g/dL (11.27-16.99) 03/01/24 14:57 Hct 46.0 % (37-53) 03/01/24 14:57 MCV 92.4 fl (82-101) 03/01/24 14:57 MCH 28.9 pg (27-33) 03/01/24 14:57 MCHC 31.3 g/dL (30-55) 03/01/24 14:57 RDW 14.6 % (12.1-15.1) 03/01/24 14:57 Plt Count 186 10^3/cmm (157-399) 03/01/24 14:57 MPV 11.5 fL (7.4-10.4) H 03/01/24 14:57 Neut % (Auto) 76.3 % 03/01/24 14:57 Lymph % (Auto) 8.0 % 03/01/24 14:57 [place] % (Auto) 10.4 % 03/01/24 14:57 Eos % (Auto) 4.8 % 03/01/24 14:57 Baso % (Auto) 0.4 % 03/01/24 14:57 Neut # (Auto) 6.47 10^3/uL (1.8-7.7) 03/01/24 14:57 Lymph # (Auto) 0.7 10^3/uL (0.8-4.8) L 03/01/24 14:57 [place] # (Auto) 0.9 10^3/uL (0.2-0.9) 03/01/24 14:57 Eos # (Auto) 0.4 10^3/uL (0.0-0.8) 03/01/24 14:57 Baso # (Auto) 0.0 10^3/uL (0.0-0.1) 03/01/24 14:57 Nucleated RBC % (auto) 0 % 03/01/24 14:57 Nucleated RBCs # 0.0 /100WBC 03/01/24 14:57 Sodium 139 mmol/L (136-145) 03/01/24 14:57 Potassium 4.0 mmol/L (3.5-5.1) 03/01/24 14:57 Chloride 102 mmol/L (98-107) 03/01/24 14:57 Carbon Dioxide 27 mmol/L (22-29) 03/01/24 14:57 Anion Gap 14.0 (5-19) 03/01/24 14:57 BUN 26 mg/dL (8-23) H 03/01/24 14:57 Creatinine 1.2 mg/dL (0.7-1.2) 03/01/24 14:57 GFR Calculation Not Reportable 03/01/24 14:57 Glucose 115 mg/dL (65-115) 03/01/24 14:57 Calculated Osmolality 294 mOsm/kg (285-295) 03/01/24 14:57 Lactic Acid 1.3 mmol/L (0.5-2.2) 03/01/24 14:57 Calcium 9.4 mg/dL (8.5-10.5) 03/01/24 14:57 Total Bilirubin 0.3 mg/dL (0.15-1.2) 03/01/24 14:57 AST 20 U/L (0-40) 03/01/24 14:57 ALT 19 U/L (0-41) 03/01/24 14:57 Alkaline Phosphatase 131 U/L (40-130) H 03/01/24 14:57 Troponin T Baseline 47 ng/L (0-15) H 03/01/24 14:57 C-Reactive Protein 13.1 mg/L (0.0-4.9) H 03/01/24 14:57 Total Protein 6.9 g/dL (6.6-8.7) 03/01/24 14:57 Albumin 3.7 g/dL (3.5-5.2) 03/01/24 14:57 Globulin 3.2 g/dL (1.3-4.6) 03/01/24 14:57 Procalcitonin 0.11 ng/mL (0-0.5) 03/01/24 14:57 Urine Color Yellow (Yellow) 03/01/24 17:06 Urine Appearance Turbid (CLEAR) A 03/01/24 17:06 Urine pH 8.0 (5-7) A 03/01/24 17:06 Ur Specific [place] 1.022 (1.005-1.030) 03/01/24 17:06 Urine Protein 1+ (Negative) A 03/01/24 17:06 Urine Glucose (UA) Negative (Normal) 03/01/24 17:06 Urine Ketones Trace (Negative) 03/01/24 17:06 Urine Blood Negative (Negative) 03/01/24 17:06 Urine Nitrate Negative (Negative) 03/01/24 17:06 Urine Bilirubin Negative (Negative) 03/01/24 17:06 Urine Urobilinogen 1.0 mg/dL (Negative) 03/01/24 17:06 Ur Leukocyte Esterase Negative (Negative) 03/01/24 17:06 Urine RBC 0-2 /hpf (0-2) 03/01/24 17:06 Urine WBC 0-5 /hpf (0-5) 03/01/24 17:06 Ur Squamous Epith Cells 0-5 /hpf (0-5) 03/01/24 17:06 Amorphous Sediment Not Reportable 03/01/24 17:06 Urine Bacteria None seen /hpf (NONE) 03/01/24 17:06 Hyaline Casts 5.36 /lpf 03/01/24 17:06 All radiology interpretation(s) finalized by discharge Discharge Plan Discharge Patient Disposition: Home Clinical Impression: Altered mental status Condition: Stable Prescriptions: No Action Lasix 20 mg tablet 20 mg PO DAILY PRN (Reason: edema) Qty: 30 2RF Eliquis 5 mg tablet 5 mg PO BID@0900,2100 Qty: 60 0RF omeprazole 40 mg capsule,delayed release(DR/EC) 40 mg PO BID 56 Days Qty: 112 0RF clotrimazole 1 % cream 1 applic topical DAILY levothyroxine 125 mcg tablet See Rx Instructions .ROUTE .COMPLEX Qty: 90 3RF Dose Instruction: TAKE 1 TABLET BY MOUTH DAILY Rx Instructions: TAKE 1 TABLET BY MOUTH DAILY levalbuterol HCl 0.63 mg/3 mL solution for nebulization 0.63 mg inhalation TID PRN (Reason: shortness of breath or wheezing) Qty: 270 6RF Anoro Ellipta 62.5-25 mcg/actuation blister with device 1 inh inhalation DAILY Qty: 60 6RF Rx Instructions: 340 B prednisone 20 mg tablet 40 mg PO DAILY 5 Days Qty: 10 0RF cephalexin 500 mg capsule 500 mg PO Q8H 7 Days Qty: 21 0RF (DME) AffloVest See Rx Instructions .Route .MEDSUPPLY Qty: 1 0RF Rx Instructions: High frequency chest wall oscillation at 5Hz-20Hz for 30 minutes twice daily. ipratropium bromide 0.02 % Solution 0.5 mg INHALATION Q6H PRN (Reason: Shortness Of Breath) Rx Instructions: unknown frequency; unknown if PRN or scheduled ketoconazole 2 % cream 1 applic TOPICAL BID Discharge Orders: Discharge ED (Routine); Ordered 03/01/24 Ordered By: Aubrie Morrissey Referrals: Mckay Warren DO [Primary Care Provider] - Discharge Diet: Usual diet Discharge Activity: Increase activity as tolerated Patient Instructions: Altered Mental Status (ED) Activity Restrictions/Additional Instructions: Thank you for choosing [facility] for your healthcare needs today. Please realize this is an emergency room and that we are providing you with a medical screening exam and this may not be complete and all inclusive of all the testing and or work up that you may need to determine your ailment or severity of your illness. You have been screened and evaluated and felt safe for discharge. Health conditions do change or evolve sometimes and as such it is important that you follow up with your Primary Doctor to be re checked, 3-5 days is a general good time frame for follow up. 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
[2024-03-01 15:06] LABS: Basophils % 0.4 %; Eosinophils # 0.4 10^3/uL (0.0-0.8); Eosinophils % 4.8 %; Lymphocytes # 0.7 10^3/uL (0.8-4.8); Mean Corpuscular HGB Conc 31.3 g/dL (30-55); Mean Corpuscular Hemoglobin 28.9 pg (27-33); Mean Corpuscular Volume 92.4 fl (82-101); Mean Platelet Volume 11.5 fL (7.4-10.4); Monocytes # 0.9 10^3/uL (0.2-0.9); Monocytes % 10.4 %; Neutrophils # 6.47 10^3/uL (1.8-7.7); Neutrophils % 76.3 %; Nucleated Red Blood Cells % 0 %; Platelet Count 186 10^3/cmm (157-399); Red Blood Count 4.98 10^6/uL (3.85-5.65); Red Cell Distribution Width 14.6 % (12.1-15.1); White Blood Count 8.48 10^3/uL (3.29-11.43)
[2024-03-01 15:24] LABS: Lactic Sepsis W/Reflex 1.3 mmol/L (0.5-2.2)
[2024-03-01 15:25] LABS: Alanine Aminotransferase 19 U/L (0-41); Albumin Level 3.7 g/dL (3.5-5.2); Alkaline Phosphatase 131 U/L (40-130); Aspartate Amino Transferase 20 U/L (0-40); Blood Urea Nitrogen 26 mg/dL (8-23); C Reactive Protein 13.1 mg/L (0.0-4.9); Calcium 9.4 mg/dL (8.5-10.5); Carbon Dioxide 27 mmol/L (22-29); Chloride 102 mmol/L (98-107); Globulin 3.2 g/dL (1.3-4.6); Glucose 115 mg/dL (65-115); Osmolality Calculated 294 mOsm/kg (285-295); Sodium 139 mmol/L (136-145); Total Bilirubin 0.3 mg/dL (0.15-1.2); Total Protein 6.9 g/dL (6.6-8.7); Troponin(5th) Baseline 47 ng/L (0-15)
[2024-03-01 15:30] VITALS: BP 112/74; PULSE 66; O2SAT 96
[2024-03-01 15:32] LABS: Procalcitonin 0.11 ng/mL (0-0.5)
[2024-03-01 16:30] VITALS: BP 133/82; PULSE 53; O2SAT 93
--- NOTE | 2024-03-01 17:04 | ECG_ITS ---
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 Measurements Intervals [place] Rate: 64 P: 0 [place]: 0 QRS: 74 QRSD: 109 T: 90 QT: 428 QTc: 444 Interpretive Statements ATRIAL FIBRILLATION POSSIBLE INFERIOR MYOCARDIAL INFARCTION , PROBABLY OLD [30 ms Q WAVE IN II/aVF] ABNORMAL RHYTHM ECG Compared to ECG 03/01/2024 15:31:10 T-wave abnormality no longer present Possible ischemia no longer present Myocardial infarct finding still present Electronically Signed On 03-02-2024 0:23:59 CDT by Sal Nieves M.D. [email or web address]
[2024-03-01 17:14] LABS: Bilirubin Urine Negative (Negative); Blood Urine Negative (Negative); Glucose Urine UA Negative (Normal); Ketones Urine Trace (Negative); Leukocyte Esterase Urine Negative (Negative); Nitrate Urine Negative (Negative); Protein Urine 1+ (Negative); Specific Gravity, Urine 1.022 (1.005-1.030); Urine Appearance Turbid (CLEAR); Urine Color Yellow (Yellow)
[2024-03-01 17:16] LABS: Bacteria Urine None Seen /hpf; Hyaline Casts Urine 5.36 /lpf; RBC Urine 0-2 /hpf (0-2); Squamous Epithelial Cell Urine 0-5 /hpf (0-5); WBC Urine 0-5 /hpf (0-5)
[2024-03-01 17:55] VITALS: BP 129/86; PULSE 66; O2SAT 95
== END 2024-03-01 17:56 | disposition home or self-care (01) ==
PROVIDERS: Emergency Provider Emergency Medicine; PCP Family Medicine
DX: R41.82 Altered mental status, unspecified (principal); Z79.01 Long term (current) use of anticoagulants; I48.91 Unspecified atrial fibrillation; I10 Essential (primary) hypertension; E78.5 Hyperlipidemia, unspecified; I25.10 Atherosclerotic heart disease of native coronary artery without angina pectoris; Z87.891 Personal history of nicotine dependence
CPT/HCPCS: 36415; 70450; 71045; 80053; 81001; 83605; 84145; 84484; 85025; 86140; 87040; 93005; 99285

== ENCOUNTER → 2024-03-21 15:45 | Outpatient (BNVA) | payer MEDICARE, SELFPAY | PROVIDERS: PCP Family Medicine; Visit Provider Nurse Practitioner Family | DX: R30.0 Dysuria (principal) | CPT/HCPCS: 81000 ==

== ENCOUNTER 2024-09-06 10:35 | Outpatient (CLI) | payer MEDICARE, SELFPAY ==
--- NOTE | 2024-09-06 10:36 | FL_ITS ---
WS: [id number] Modified barium swallow, 09/06/2024 Clinical Data: Other dysphagia Comparison: Modified barium swallow, 04/13/2013. Fluoroscopy time: 1min [id number] # of spot films: 0 Findings: The patient had premature spillage from the oral cavity with numerous consistencies to the level of the piriform sinuses. There was minimal residual which cleared with multiple swallows. There was occasional penetration with thin liquids but no aspiration. The esophagus showed dilatation with tertiary contractions and poor motility. FL/FL barium swallow modifd [id number] Impression: 1. Premature spillage from the oral cavity. 2. Minimal residual in the hypopharynx which cleared with multiple swallows. 3. Occasional penetration with thin liquids but no and aspiration. 4. Dilated esophagus with tertiary contractions and poor motility.
== END 2024-09-06 10:36 | disposition home or self-care (01) ==
LOC: RAD 10:35
PROVIDERS: PCP Nurse Practitioner Family; Visit Provider Internal Medicine Gastroenterology
DX: K22.0 Achalasia of cardia (principal); R05.3 Chronic cough; R93.89 Abnormal findings on diagnostic imaging of other specified body structures; K22.89 Other specified disease of esophagus
CPT/HCPCS: 74230; 92611

== ENCOUNTER → 2024-10-16 14:45 | Outpatient (BNVA) | payer MEDICARE, SELFPAY | PROVIDERS: PCP Nurse Practitioner Family; Visit Provider Family Medicine | DX: R79.89 Other specified abnormal findings of blood chemistry (principal); I10 Essential (primary) hypertension; I48.0 Paroxysmal atrial fibrillation; E78.5 Hyperlipidemia, unspecified; E03.9 Hypothyroidism, unspecified; Z12.5 Encounter for screening for malignant neoplasm of prostate; E55.9 Vitamin D deficiency, unspecified | CPT/HCPCS: 80053; 80061; 82306; 82607; 83735; 84439; 84443; 85025; G0103 ==

== ENCOUNTER 2025-01-09 05:00 | Outpatient (RCR) | payer MEDICARE, SELFPAY | END 2025-02-08 23:59 | disposition home or self-care (01) | LOC: GPT 05:00 | PROVIDERS: PCP Family Medicine; Visit Provider Family Medicine | DX: G11.9 Hereditary ataxia, unspecified (principal) | CPT/HCPCS: 97110; 97112; 97162; 97530 ==

== ENCOUNTER 2025-02-09 05:00 | Outpatient (RCR) | payer MEDICARE, SELFPAY | END 2025-03-11 23:59 | disposition home or self-care (01) | LOC: GPT 05:00 | PROVIDERS: PCP Family Medicine; Visit Provider Family Medicine | DX: G11.9 Hereditary ataxia, unspecified (principal); M62.81 Muscle weakness (generalized) | CPT/HCPCS: 97110; 97112; 97530 ==

== ENCOUNTER 2025-03-12 05:00 | Outpatient (RCR) | payer MEDICARE, SELFPAY | END 2025-04-10 23:59 | disposition home or self-care (01) | LOC: GPT 05:00 | PROVIDERS: PCP Family Medicine; Visit Provider Family Medicine | DX: G11.9 Hereditary ataxia, unspecified (principal) | CPT/HCPCS: 97112; 97530 ==

== ENCOUNTER 2025-03-26 13:03 | Emergency (ER) | payer MEDICARE, SELFPAY ==
--- OUTSIDE RECORDS SUMMARY | 2025-01-24 07:15 | XMS_ITS ---
Author Organization [facility] Address [address] [place] [address] Care Team Providers Care Business Risk Consultant Name Role Phone Scott, Jacob Jimenez [phone] REASON FOR VISIT With BOTOX- achalasia Encounters Encounter Location Date Provider Diagnosis [facility] [address] [place] [address] 01/24/2025 Jacob Scott Plan Of Treatment Next Appt Details Provider Name:Ngoc Prasad, 05/07/2025 11:10:00 AM, [address] , [facility] [address], [place], [address], Progress Notes * Jennifer MENDIOLA DDOB:[birth year] (84 yo M)Acc No.[id number]:01/24/2025 History and Physical Patient: Jennifer Frey Provider: Kristine Scott MD :1940 A ge:84 Y S ex:Male Date:01/24/2025 Address:[address] [place], [place] [id number] 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
[2025-03-26] VITALS (8 sets, daily range): BP systolic 135–161; BP diastolic 79–110; PULSE 77–95; RESP 16; TEMP 36.9; O2SAT 93–96; BMI 23.0
--- NOTE | 2025-03-26 13:19 | XRR_ITS ---
PROCEDURE INFORMATION: Exam: XR Chest Exam date and time: 03/26/2025 1:25 PM Age: 84 years old Clinical indication: Shortness of breath; Additional info: SOB, thinks aspirated TECHNIQUE: Imaging protocol: Radiologic exam of the chest. Views: 1 view. COMPARISON: CR XR chest 1V portable [id number] 03/01/2024 2:46 PM FINDINGS: Lungs: Mild bibasilar opacities, [id number]-left. Emphysema is again seen with curvilinear opacity in the left upper lung similar to prior, likely scar. Pleural spaces: Unremarkable. No pleural effusion. No pneumothorax. Heart/Mediastinum: Unremarkable. No cardiomegaly. Bones/joints: Status post median sternotomy and CABG. XR/XR chest 1V portable [id number] IMPRESSION: Emphysema with bibasilar opacities.
--- NOTE | 2025-03-26 13:20 | ECG_ITS ---
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 Measurements Intervals [place] Rate: 79 P: 0 SD: 0 QRS: 51 QRSD: 107 T: 72 QT: 375 QTc: 431 Interpretive Statements ATRIAL FIBRILLATION POSSIBLE LATERAL MYOCARDIAL INFARCTION , OF INDETERMINATE AGE [30 ms Q WAVE IN I/aVL/V5/V6] PROBABLE INFERIOR MYOCARDIAL INFARCTION , PROBABLY OLD [35 ms Q WAVE IN II/aVF] Compared to ECG 03/01/2024 17:04:02 No significant changes Electronically Signed On 03-27-2025 08:00:39 CDT by Sal Nieves M.D. [email or web address]
--- OUTSIDE RECORDS SUMMARY | 2025-03-26 13:28 | XMS_ITS | Patient Health Record ---
Author Organization [facility] Address [address] [place] [address] Care Team Providers Care Chemistry Technologist Name Role Phone Jacob Scott Unavailable [phone] Xneia Tobar Unavailable [phone] Cristino Newell Unavailable [phone] Ngoc Ambrocio Unavailable Allergies Allergen (clinical drug ingredient) Drug/Non Drug Allergy documented on EMR Reaction Allergy Type Onset Date Status albuterol Albuterol Unknown Drug Allergy Active Results Component Value Reference Range Flag Notes UA Without Micro-[place], [place] - [id number] Reviewed date:01/30/2025 11:47:12 AM Interpretation: Performing Lab: Notes/Report: Glucose 0 Bili 0 Ketones 0 Sp Duarte 1.015 Blood 0 pH 6.0 Protein 0 Urobili 0 Nitrites 0 Leukocytes 1+ UA Without Micro-[place], [place] - [id number] Reviewed date:12/28/2024 10:44:03 AM Interpretation: Performing Lab: Notes/Report: Glucose - Bili - Ketones - Sp Duarte 1.015 Blood - pH 7.5 Protein +- Urobili - Nitrites - Leukocytes +- Culture Urine [id number] Reviewed date:01/01/2025 07:14:36 AM Interpretation: Performing Lab: Notes/Report: Culture Urine Mia YARITZA MENDIOLA Culture Urine t: Culture Urine Culture Urine Accessio [id number] Culture Urine n: Culture Urine Microbiology Culture Urine PROCEDURE: Culture U rine [O1] Culture Urine SOURCE: Urine BODY SITE: Culture Urine COLLECTED DATE/TIME: 12/28/2024 10:33 CDT RECEIVED DATE/TIME: 12/28/2024 15:25 CDT Culture Urine START DATE/TIME: 12/10 15:25 CDT FREE TEXT SOURCE: Culture Urine FINAL REPORT Culture Urine Final Report [] Culture Urine Verified Date/Time: 01/01/2025 06:57 CDT Culture Urine <10,000 cfu/ml Provi dencia rettgeri Culture Urine SUSCEPTIBILITY RESULTS Culture Urine Proret Culture Urine Antibiotic MDIL MINT Culture Urine Ampicillin >=32 Resistant Culture Urine Ampicillin/Sulbactam >=32 Resistant Culture Urine Cefepime <=0.12 Susceptible Culture Urine Ceftazidime 4 Susceptible Culture Urine Ceftriaxone <=0.25 Susceptible Culture Urine Ciprofloxacin <=0.06 Susceptible Culture Urine Levofloxacin <=0.12 Susceptible Culture Urine Nitrofurantoin 256 Resistant Culture Urine Piperacillin/Tazobac catherine <=4 Susceptible Culture Urine Order Comments Culture Urine O1: Culture Urine (C ulture Urine [id number]) Culture Urine Diagnosis Descriptio n: Gross hematuria Microscopic Urine [id number] Reviewed date:12/29/2024 08:55:46 PM Interpretation: Performing Lab: Notes/Report: Diagnosis Description: Gross hematuria RBC U 2 NA WBC U 16 0-5 /HPF HI Bacteria None Seen NA Hyaline Casts 3 NA SQ EPI 2 NA Upper GI Double Contrast w/p ill challenge-[id number] Reviewed date:09/30/2024 02:25:33 PM Interpretation: Performing Lab: Notes/Report: See Below For Report Upper GI Double Contrast w/pill challenge Diagnosis Description: Dysphagia, unspecified Read See Below For Report Upper GI Double Contrast w/p ill challenge-[id number] Reviewed date:09/30/2024 02:25:33 PM Interpretation: Performing Lab: Notes/Report: [id number] EGD with Botox-[id number] Reviewed date:01/29/2025 11:26:10 AM Interpretation: Performing Lab: Notes/Report: Schedule Confirmation Reviewed date:08/16/2024 03:29:32 PM Interpretation: Performing Lab: Notes/Report: Esophagram w/ Swallow Function w/pill ch Schedule Confirmation Reviewed date:09/30/2024 02:25:33 PM Interpretation: Performing Lab: Notes/Report: Upper GI Double Contrast w/pill challeng Schedule Confirmation Reviewed date:09/15/2024 12:44:50 PM Interpretation: Performing Lab: Notes/Report: Upper GI Double Contrast w/pill challeng Schedule Confirmation Reviewed date:08/23/2024 10:10:45 AM Interpretation: Performing Lab: Notes/Report: Esophagram w/ Swallow Function w/pill ch Reason For Referral No Information Medications Medication SIG (Take, Route, Frequency, Duration) Notes Start Date End Date Status Triamcinolone Acetonide 0.1 % Cream 1 application Externally Twice a day; Duration: 14 days 01/30/2025 Active [place] 3 1200 MG Capsule 1 capsule Orally Once a day Not-Taking Support A and D ointment as needed for pressure sores Not-Taking albuterol 0.83 MG/ML Inhalation Solution INTRAPULMONARY *Reorder from [facility] for eRx and Interaction Alerts* 03/17/2022 Not-Taking albuterol 0.833 MG/ML / ipratropium bromide 0.167 MG/ML Inhalation Solution INTRAPULMONARY *Reorder from [facility] for eRx and Interaction Alerts* 03/17/2022 Not-Taking Albuterol Sulfate (2.5 MG/3ML) 0.083% Nebulization Solution as directed Inhalation Three times a day Not-Taking arformoterol 0.0075 MG/ML Inhalation Solution [Brovana] INTRAPULMONARY *Reorder from [facility] for eRx and Interaction Alerts* 07/16/2020 Not-Taking Aspirin 325 MG Oral Capsule ORAL *Reorder from [facility] for eRx and Interaction Alerts* 03/17/2022 Not-Taking Bactrim 400-80 MG Tablet 1 tablet Orally Once a day Not-Taking Levothyroxine Sodium 0.112 MG Oral Tablet ORAL *Reorder from [facility] for eRx and Interaction Alerts* 12/29/2017 Not-Taking Macrobid 100 MG Capsule 1 capsule with food Orally every 12 hrs start 03/04/23 14 days Not-Taking magnesium hydroxide 240 MG/ML Oral Suspension ORAL *Reorder from [facility] for eRx and Interaction Alerts* 12/29/2017 Not-Taking Pantoprazole Sodium 40 MG Tablet Delayed Release Oral 07/16/2020 Not-Taking Pantoprazole Sodium 40 MG Tablet Delayed Release 1 tablet Orally Once a day Not-Taking Stool Softener 100 MG Tablet 1 capsule as needed Orally Once a day Not-Taking Vitamin D3 125 MCG (5000 UT) Capsule 1 capsule Orally Once a day Not-Taking Vitamin E 268 MG (400 UNIT) Capsule 1 capsule Orally Once a day Not-Taking dilTIAZem HCl 60 MG Tablet 1 tablet Orally TID; Duration: 90 days Not-Taking dilTIAZem HCl 30 MG Tablet as directed Orally Not-Takin g Ipratropium-Albutero l 0.5-2.5 (3) MG/3ML Solution USE 1 VIAL IN NEBULIZER DAILY - for rescue Not-Taking Milk of Magnesia 1200 MG/15ML Suspension 60 ml Orally Once a day Active Tums 500 MG Tablet Chewable 1 tablet as needed Orally Once a day Active dilTIAZem HCl 30 MG Tablet as directed Orally Not-Takin g FLUoxetine HCl 20 MG Capsule 1 capsule Orally Once a day Active Sertraline HCl 25 MG Tablet 1 tablet Orally Once a day Active Anoro Ellipta 62.5-25 MCG/ACT Aerosol Powder Breath Activated 1 puff Inhalation Once a day Active Aspirin 325 MG Tablet Delayed Release 1 tablet Orally Once a day Aspirin 01/05/2011 Active Ketoconazole 2 % Cream 1 application Externally Once a day Active Levothyroxine Sodium 125 MCG Capsule 1 capsule in the morning on an empty stomach Orally Once a day Active Brovana 15 MCG/2ML Nebulization Solution USE 1 VIAL IN NEBULIZER TWICE DAILY - Morning and Evening Not-Taking Budesonide 0.5 MG/2ML Suspension USE 1 VIAL IN NEBULIZER TWICE DAILY - Rinse mouth well after each use. Not-Taking budesonide 0.25 MG/ML Inhalation Suspension INTRAPULMONARY *Reorder from [facility] for eRx and Interaction Alerts* 03/17/2022 Not-Taking Calcium + D3 600-800 MG-UNIT Tablet 1 tablet with a meal Orally Once a day Not-Taking calcium carbonate 1250 MG / cholecalciferol 0.01 MG Oral Tablet ORAL *Reorder from [facility] for eRx and Interaction Alerts* 12/29/2017 Not-Taking Clotrimazole 1 % Cream 1 application Externally Twice a day Not-Taking Clotrimazole 10 MG/ML Topical Cream CUTANEOUS *Reorder from [facility] for eRx and Interaction Alerts* 03/17/2022 Not-Taking Immunizations Vaccine Route Administration Date Status Comme nts COVID-19 Vaccine (Moderna) Booster Unknown 11/18/2021 A dministered COVID-19 Vaccine (Moderna) Dose #1 Unknown 08/14/2020 A dministered COVID-19 Vaccine (Moderna) Dose #2 Unknown 09/11/2020 A dministered COVID-19 Vaccine (Moderna) Dose #3 Unknown 05/19/2021 A dministered Influenza (whole), CPT 08609 Inactive Unknown 04/27/2017 Administered Influenza (whole), CPT 43806 Inactive Unknown 04/11/2018 Administered Influenza, seasonal, injecta ble, preservative free, 3 yrs and above Unknown 04/19/2019 Administered Influenza, seasonal, injecta ble, preservative free, 3 yrs and above Unknown 04/23/2020 Administered Pneumovax 23 Unknown 04/16/2016 Administered Social History Tobacco Use: Social History Observation Description Date Details (start date - stop date) Former Smoker NA - NA Social History Drugs/Alcohol: Social Info Question Answer Notes Caffeine Intake: 2-3 cups per day Coffee, Sod a Drug/Alcohol: Social Info Question Answer Notes AUDIT-C (Standard) Did you have a drink containing alcohol in the past year? No Points 0 Interpretation Negative Tobacco Use: Social Info Question Answer Notes Tobacco Control (Standard) Tobacco use: Former smoker How long has it been since you last smoked? Greater than 10 years Additional Findings: Tobacco non-user Ex-moderat e cigarette smoker (10-19/day) Additional Details Category Social Info Options Details Drugs/Alcohol: Do you smoke marijuana? 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 (79332269) Degenerative disease of nervous system, unspecified (G31.9) Active confirmed Problem 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) Cerebellar ataxia in diseases classified elsewhere (G32.81) Active confirmed Problem 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 (685296010519278) 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) Active confirmed [id number] ed Description:Paradise griffith arteriosclerosis Problem Angina co-occurrent and due to coronary arteriosclerosis (disorder) (4032118479420718 2) 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 with other forms of angina pectoris (I25.118) Active confirmed Problem Chronic obstructive pulmonary disease (61210982) Chronic obstructive pulmonary disease, unspecified (J44.9) Active confirmed [id number] ed Description:Respiratory Therapist jo obstructive lung disease Problem Gastro-esophageal reflux disease without esophagitis (193189453) Gastro-esophage al reflux disease without esophagitis (K21.9) Active confirmed Problem Stricture of esophagus (08540750) Esophageal obstruction (K22.2) Active confirmed Problem Acquired diverticulum of esophagus (62907463) Diverticulum of esophagus, 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) Active confirmed Problem Calculus of kidney (50435304) Calculus of kidney (N20.0) Active confirmed Problem Overactive bladder (910565156) Overactive bladder (N32.81) Active confirmed Problem Shortness of breath (238027148) Shortness of breath (R06.02) Active confirmed [id number] Problem Chest pain (46898323) Chest pain, unspecified (R07.9) Active confirmed [id number] ed Description:Ches t pain Problem Dysphagia (12904545) Dysphagia, unspecified (R13.10) Active confirmed Problem Dysphagia (99802315) Other dysphagia (R13.19) Active confirmed Problem Electrocardiogram abnormal (785952799) Abnormal electrocardiogr am [ECG] [EKG] (R94.31) Active confirmed [id number] ed Description:Elec trocardiogram abnormal Problem Long-term current use of inhaled steroid (085306561) technician terminal and repeater (current) use of inhaled steroids (Z79.51) Active confirmed Problem Dependence on enabling machine or device (880593728) Dependence on other enabling machines and devices (Z99.89) Active confirmed Problem Hyperlipidemia (80413166) Hyperlipidemia, unspecified (E78.5) Active confirmed Problem Chronic obstructive bronchitis (disorder) (553485802) 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.9) Active confirmed Problem Obstructive sleep apnea (72591340) Obstructive sleep apnea (G47.33) Active confirmed Problem Dysphagia (79555430) Dysphagia, unspecified type (R13.10) Active confirmed Problem Esophageal spasm (34012111) Esophageal spasm (K22.4) Active confirmed Problem History of urinary tract infection (2241268987806) History of UTI (Z87.440) Active confirmed Problem COPD - Chronic obstructive pulmonary disease (19292831) COPD (chronic obstructive pulmonary disease) (J44.9) Active confirmed Problem Achalasia (09249945) Achalasia (K22.0) Active confirmed Problem Chronic hypercapnic respiratory failure (597668871) Chronic hypercapnic respiratory failure (J96.12) Active confirmed Problem Tobacco user (510221840) 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) Active confirmed Problem History of nephrolithiasis (859704092) History of nephrolithiasis (Z87.442) Active confirmed Problem Abnormal esophagram (R93.3) Active confirmed Problem Esophageal motility disorder (32511822) Esophageal motility disorder (K22.4) Active confirmed Problem Primary hypertension (39089356) Primary hypertension (I10) Active confirmed Vital Signs Heart Rate 84 /min 02/27/2025 Temperature 98.5 degrees Fahrenheit 02/27/2025 Respiratory Rate 18 /min 02/27/2025 Blood pressure diastolic 70 mm Hg 02/27/2025 Oximetry 96 % 02/27/2025 Height-cm 182.88 cm 02/27/2025 Weight-kg 65.59 kg 02/27/2025 Height 72 in 02/27/2025 Blood pressure systolic 110 mm Hg 02/27/2025 Weight 144.6 lbs 02/27/2025 BMI 19.61 kg/m2 02/27/2025 Procedures Procedure Date Ordered Date Performed Result Body Sit e PVR (Post Void Residual) 11/29/2024 11/29/2024 N/A Encounters Encounter Location Date Provider Diagnosis [facility] [address] [place] [address] 06/29/2024 Jacob Scott [facility] [address] [place], [place] [address] 01/24/2025 Jacob Scott [facility] [address] [place] [address] 06/27/2024 Jacob Scott Achalasia K22.0 ; COPD (chronic obstructive pulmonary disease) J44.9 and senior care (current) use of inhaled steroids Z79.51 [facility] [address] [place] [address] 08/15/2024 Jacob Scott Achalasia K22.0 and Chronic cough R05.3 [facility] [address] [place] [address] 11/29/2024 Cristino Newell Unspecified symptoms and signs involving the genitourinary system R39.9 ; Overactive bladder N32.81 ; History of nephrolithiasis Z87.442 and Tinea cruris B35.6 [facility] [address] [place] [address] [address] [place] [address] 12/28/2024 Cristino Newell Gross hematuria R31. 0 [facility] [address] [place] [address] 01/09/2025 Jacob Scott Achalasia K22.0 [facility] [address] [place] [address] 01/30/2025 Ngoc Ambrocio Overactive bladder N32.81 ; Tinea cruris B35.6 ; History of nephrolithiasis Z87.442 and History of UTI Z87.440 [facility] [address] [place] [address] 02/27/2025 Jacob Scott Achalasia K22.0 ; Dysphagia, unspecified R13.10 and Weight loss R63.4 [facility] [address] [place] [address] 08/10/2024 Jacob Scott [facility] [address] [place] [address] 10/12/2024 Xenia Acsabrinain Dysphagia, unspecified R13.10 and Esophageal spasm K22.4 [facility] [address] [place] [address] [address] [place] [address] 12/27/2024 Cristino Newell [facility] [address] [place] [address] 01/01/2025 Cristino Newell [facility] [address] [place] [address] 01/08/2025 Jacob Scott [facility] [address] [place] [address] 01/24/2025 Jcaob Scott Assessments Encounter Date Diagnosis (ICD Code) Assessment Notes Treatment Notes Treatment Clinical Notes Section Notes 10/12/2024 Dysphagia, unspecified (ICD-10 - R13.10) 11/29/2024 Unspecified symptoms and signs involving the genitourinary system (ICD-10 - R39.9) 12/28/2024 Gross hematuria (ICD-10 - R31.0) 01/09/2025 Achalasia (ICD-10 - K22.0) His achalasia symptoms have recurred. I again discussed with him consideration for aggressive intervention but he does not wish to proceed with that. He would like to have repeat Botox. Will set him up for a repeat EGD with Botox injection. 01/30/2025 Overactive bladder (ICD-10 - N32.81) 01/30/2025 Tinea cruris (ICD-10 - B35.6) 02/27/2025 Achalasia (ICD-10 - K22.0) The etiology of his weight loss is likely a combination of his dysphagia from his achalasia as well as the oropharyngeal dysphagia which makes him have difficulty controlling his swallow. His appetite appears to be diminished as well. I have recommended that he try taking smaller more frequent meals. I would have him try taking softer foods but avoid thin liquids will have him weigh himself over the next several weeks and call us with the results in several weeks. If he does not see improvement with this, we will set him up for a repeat swallow function study to determine if his problem is more related to aspiration. 02/27/2025 Dysphagia, unspecified (ICD-10 - R13.10) The etiology o f his weight loss is likely a combination of his dysphagia from his achalasia as well as the oropharyngeal dysphagia which makes him have difficulty controlling his swallow. His appetite appears to be diminished as well. I have recommended that he try taking smaller more frequent meals. I would have him try taking softer foods but avoid thin liquids will have him weigh himself over the next several weeks and call us with the results in several weeks. If he does not see improvement with this, we will set him up for a repeat swallow function study to determine if his problem is more related to aspiration. 11/29/2024 Overactive bladder (ICD-10 - N32.81) 10/12/2024 Esophageal spasm (ICD-10 - K22.4) 08/15/2024 Achalasia (ICD-10 - K22.0) The etiology of his coughing is not clear. He states that he did not see improvement after the Botox. This may be related to aspiration rather than the achalasia. Will obtain a barium swallow with speech therapy to determine whether there is any aspiration aspect to his symptoms. Will consider an upper GI to with pill challenge to assess his response to the Botox if this study is normal. If it appears that his problem is persistent achalasia, will consider repeat upper endoscopy with balloon dilation and repeat Botox. 08/15/2024 Chronic cough (ICD-10 - R05.3) The etiology of his coughing is not clear. He states that he did not see improvement after the Botox. This may be related to aspiration rather than the achalasia. Will obtain a barium swallow with speech therapy to determine whether there is any aspiration aspect to his symptoms. Will consider an upper GI to with pill challenge to assess his response to the Botox if this study is normal. If it appears that his problem is persistent achalasia, will consider repeat upper endoscopy with balloon dilation and repeat Botox. 06/27/2024 Achalasia (ICD-10 - K22.0) We will set him up for an EGD with Botox to treat his achalasia. If all of his symptoms resolve with this no further evaluation would be necessary. If he persist with having the choking and spitting up we may need to pursue further evaluation after his therapy with Botox. 06/27/2024 COPD (chronic obstructive pulmonary disease) (ICD-10 - J44.9) We will set him up for an EGD with Botox to treat his achalasia. If all of his symptoms resolve with this no further evaluation would be necessary. If he persist with having the choking and spitting up we may need to pursue further evaluation after his therapy with Botox. 06/27/2024 senior care (current) use of inhaled steroids (ICD-10 - Z79.51) We will set hi m up for an EGD with Botox to treat his achalasia. If all of his symptoms resolve with this no further evaluation would be necessary. If he persist with having the choking and spitting up we may need to pursue further evaluation after his therapy with Botox. 11/29/2024 History of nephrolithiasis (ICD-10 - Z87.442) 02/27/2025 Weight loss (ICD-10 - R63.4) The etiology of his weight loss is likely a combination of his dysphagia from his achalasia as well as the oropharyngeal dysphagia which makes him have difficulty controlling his swallow. His appetite appears to be diminished as well. I have recommended that he try taking smaller more frequent meals. I would have him try taking softer foods but avoid thin liquids will have him weigh himself over the next several weeks and call us with the results in several weeks. If he does not see improvement with this, we will set him up for a repeat swallow function study to determine if his problem is more related to aspiration. 01/30/2025 History of nephrolithiasis (ICD-10 - Z87.442) 01/30/2025 History of UTI (ICD-10 - Z87.440) 11/29/2024 Tinea cruris (ICD-10 - B35.6) 11/29/2024 Other Give 4 weeks of gemtessa samples. If it works he is to call the office for refill see nurse practitioner in 2 months Continues ketoconazole cream that is prescribed by his PCP for jock itch. If it does not improve call. Imaging for stone only if symptomatic 01/30/2025 Other PATIENT WILL FOLLOW UP IN 3 months ONLY IMAGE STONES IF SYMPTOMATIC START TRIAMCINOLONE CREAM TWICE A DAY FOR 14 DAYS CALL OFFICE FOR NURSE VISIT IF HE SUSPECTS UTI Plan Of Treatment Pending Test Test Name Order Date Abdomen [id number] 02/22/2024 Esophagram w/ Swallow Function w/pill ch allenge-[id number] 08/15/2024 EGD with Botox-47906 06/27/2024 Next Appt Details Provider Name:Ngoc Prasad 05/07/2025 11:10:00 AM, [address], [place], [address], Insurance Providers Payer Name Payer Address Payer Phone Subscriber Number Group Number Insured Name Patient Relationship to Insured Coverage Start Date Coverage End Date [place] [address] [place] [phone] [id number] Yaritza Mendiola Self - patient is the insured 3 [employer] Medicare Supplement [address] [place] [phone] [id number] Yaritza Mendiola Self - patient is the insured 3 Medical (General) History Medical History History ICD Code Dysphagia copd chronic hypercapnic resp. failure Covid vacc x2 plus 2 boosters achalasia hypothyroidism Surgical History Surgery Date(Month/Year) bronchoscopy CABG TURP COLON RECSECTION HEMORRHOIDECTOMY LITHTRIPSY(kidney stone) HIATAL HERNIA REPAIR EGD 07/07/2023 EGD- dilation distal esophag us injected w/botox, diverticulum distal esophagus, 4cm hiatal hernia 06-29-2024 tonsillectomy and adenoidectomy Hospitalization History Reason Date(Month/Year) chest pain 07/02 bowel obstruction 09/29 sob 08/01
--- OUTSIDE RECORDS SUMMARY | 2025-03-26 13:28 | XMS_ITS ---
Author Organization [facility] Care Team Providers Care Emergency Nurse Name Role Phone Beckie Quintanilla Unavailable Unavailable Antony Brown Unavailable Allergies and adverse reactions No Known Allergies Care Team Name Role Address Phone Organization Dates Antony Kevin PCP [address] [place], [address], [place] (Office): : [facility] 09/28/2020 - 11/01/2020 Beckie Lahite [address] [place], [address], [facility] (Office): : [facility] 09/28/2020 - 11/01/2020 Immunizations Immunization Status Vaccine Details Vaccine Code CodeSystem Date Notes TB 2 Step Mantoux Skin Test completed tuberculin skin test; unspecified formulation lotNumber: [id number] expiry: 09/08/2021 Mfg: [employer] Given 0.1 ml Right Forearm intradermally Step 2 of Multi-step with next step required 98 CVX created date: consent date: administe red date: TB 2 Step Mantoux Skin Test completed tuberculin skin test; unspecified formulation lotNumber: [id number] expiry: 09/01/2021 Mfg: [employer] Given 0.1 ml Left Forearm intradermally Step 1 of Multi-step with next step required 98 CVX created date: 1 consent date: 1 administe red date: 1 Pneumovax Dose 2 completed created date: 1 administe red date: 0 PNEUMOCOCCAL 23-VALENT VACCINE RECEIVED AT [facility] COVID-19 (SARS-COV-2) DOSE 1 cancelled SARS-COV-2 (COVID-19) vaccine, mRNA, spike protein, LNP, preservative free, 100 mcg/0.5mL dose or 50 mcg/0.25mL dose 207 CVX created date: 1 consent date: 1 COVID-19 (SARS-COV-2) DOSE 2 cancelled SARS-COV-2 (COVID-19) vaccine, mRNA, spike protein, LNP, preservative free, 100 mcg/0.5mL dose or 50 mcg/0.25mL dose 207 CVX created date: 1 consent date: 1 Mental Status Section Date Assessment Total Score Description 11/01/2020 [facility] 12 moderate cognit matthew impairment CAM 0 No delirium ind icated PHQ-9 00 10/01/2020 [facility] 15 cognitively int act CAM 0 No delirium ind icated PHQ-9 00 Problems Problem # Description Date of onset Resolved Date Code CodeSystem Concern Status 1 DYSPHAGIA, UNSPECIFIED 10/04/[address] active 2 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 10/04/[address] active 3 MUSCLE WASTING AND ATROPHY, NOT ELSEWHERE CLASSIFIED, UNSPECIFIED SITE 10/02/[address] active 4 SLEEP APNEA, UNSPECIFIED 10/01/[address] active 5 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 09/29/[id number] active 6 ACUTE KIDNEY FAILURE, UNSPECIFIED 09/29/[address] active 7 ACUTE RESPIRATORY FAILURE WITH HYPOXIA 09/29/19 21 09/30/[address] completed 8 CHRONIC OBSTRUCTIVE PULMONARY DISEASE, UNSPECIFIED 09/29/[address] active 9 CONGENITAL MALFORMATION OF ESOPHAGUS, UNSPECIFIED 09/29/[address] active 10 CONSTIPATION, UNSPECIFIED 09/29/[address] active 11 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 09/29/[address] active 12 DYSKINESIA OF ESOPHAGUS 09/29/[address] active 13 ENCOUNTER FOR SURGICAL AFTERCARE FOLLOWING SURGERY ON THE DIGESTIVE SYSTEM 09/29/[address] active 14 ESSENTIAL (PRIMARY) HYPERTENSION 09/29/[address] active 15 GASTRO-ESOPHAGEA L REFLUX DISEASE WITHOUT ESOPHAGITIS 09/29/[address] active 16 HYPOTHYROIDISM, UNSPECIFIED 09/29/[address] active 17 INTESTINAL ADHESIONS [BANDS], UNSPECIFIED TO PARTIAL VERSUS COMPLETE OBSTRUCTION 09/29/[address] active 18 MUSCLE WASTING AND ATROPHY, NOT ELSEWHERE CLASSIFIED, MULTIPLE SITES 09/29/[address] active 19 OTHER ABNORMALITIES OF GAIT AND MOBILITY 09/29/[address] active 20 OTHER CERVICAL DISC DEGENERATION, UNSPECIFIED CERVICAL REGION 09/29/[address] active 21 OTHER SPECIFIED CONGENITAL MALFORMATIONS OF INTESTINE 09/29/[address] active 22 UNSPECIFIED ABDOMINAL PAIN 09/29/[address] active 23 UNSPECIFIED INTESTINAL OBSTRUCTION, UNSPECIFIED TO PARTIAL VERSUS COMPLETE OBSTRUCTION 09/29/[address] active Reason for Referral No Reasons for Referral Entered Social History Social History Observation Description Start Date End Date Code Code System Current Smoking Status Tobacco smoking consumption unknown [id number] SNOMED CT Sex Assigned At Male 1940 70267-1 [facility] Gender Identity Sexual Orientation Vital Signs Code Code System Vitals Name Values and Units Timing Information 8310-5 LOINC Body Temperature Value=98.0 Units= F 11/01/2020 75995-4 LOINC O2 % BldC Oximetry Value=96.0 Units= % 11/01/2020 17231-9 LOINC Pain Level Value=0.0 11/01/2020 9279-1 [facility] Respiratory Rate Value=18.0 Units=/m in 10/31/2020 8462-4 [facility] Blood Pressure-Diastolic Value=70 Un its=mmHg 10/31/2020 8480-6 [facility] Blood Pressure-Systolic Vqpne=244 Un its=mmHg 10/31/2020 8867-4 [facility] Heart rate Value=80.0 Units=/min 80902-6 [facility] Weight Xmatl=512.8 Units=Lbs 8302-2 [facility] Height Value=69.0 Units=Inches 09/28/2020
--- NOTE | 2025-03-26 13:51 | W.ED.SOB ---
HPI - SOB/Dyspnea General: Chief Complaint: Shortness of Breath/Dyspnea Stated Complaint: SOB - copd Time Seen by Provider: 03/26/25 13:06 Source: patient, EMS and old records reviewed Mode of arrival: EMS Limitations: physical limitation History of Present Illness: HPI Narrative: Patient is an 84-year-old male with past medical history of coronary artery disease, restrictive lung disease, hypertension, and COPD who presents to the emergency department by ambulance due to shortness of breath. States that this began last night, he believes he had a choking episode as he frequently will aspirate when eating, and that he has required bronchoscopy in the past for aspiration. He wears O2 as needed, primarily at night, and is currently on 2 L of oxygen 95 to 96% SpO2 nasal cannula. He is not reporting any other symptoms, no chest pain, fevers, nausea/vomiting, neurological deficit, abdominal pain, or change in bowel or bladder habits. He struggles with speaking at baseline, and this somewhat limits history and review of systems. His vitals are stable otherwise at this time. MD elicited complaint: shortness of breath Pertinent past history: COPD and aspiration Onset (ago): day(s) Context: choking/aspiration Timing: constant Severity: similar to previous episodes Associated symptoms: Reports chest congestion; Deny abdominal pain, chest pain, fever(s), lightheadedness, nausea, palpitations or vomiting Related Data Home Medications ?Medication ?Instructions ?Recorded ?Confirmed aspirin 325 mg tablet 325 mg PO DAILY 07/18/24 03/26/25 magnesium hydroxide 400 mg/5 mL 5 ml PO DAILY PRN Constipation 07/18/24 03/26/25 oral suspension (Milk of Magnesia) fluoxetine 20 mg capsule 20 mg PO DAILY 03/26/25 03/26/25 levothyroxine 125 mcg tablet 125 mcg PO DAILY 03/26/25 03/26/25 umeclidinium 62.5 mcg-vilanterol 1 inh inhalation QPM 03/26/25 03/26/25 25 mcg/actuation powdr for inhalation (Anoro Ellipta) vitamin A and D 1 applic topical 6XD PRN pressure 03/26/25 03/26/25 sore Previous Rx's ?Medication ?Instructions ?Recorded AffloVest #1 ea 08/10/23 sertraline 25 mg tablet 25 mg PO DAILY #90 tabs 12/06/24 ketoconazole 2 % topical cream 1 applic topical DAILY #60 grams 01/04/25 doxycycline hyclate 100 mg tablet 100 mg PO BID 10 days #20 tabs 03/26/25 Allergies Allergy/AdvReac Type Severity Reaction Status Date / Time albuterol Allergy Unknown Verified 01/08/25 09:21 Review of Systems General: Reports: 10 or more systems reviewed and unremarkable except in HPI and below Const: Denies: fever(s), chills or fatigue Eyes: Denies: change in vision ENMT: Denies: throat pain, ear or mastoid pain or nasal discharge Card: Denies: chest pain, palpitations, swelling of feet/ankles or lightheadedness Resp: Reports: dyspnea and chest congestion; Denies: productive cough or wheezing GI: Denies: abdominal pain, nausea, vomiting, diarrhea or constipation : Denies: flank pain, difficulty urinating, dysuria or urinary frequency Musc: Denies: neck pain, back pain or joint pain Skin/Breast: Denies: rash Neuro: Denies: headache(s), numbness in extremities or weakness in extremities PFSH ED PFSH: Medical History Enrolled in chronic care management Need for immunization against influenza Degeneration, cerebellar, primary Hypertension Dysphagia Hypothyroid 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 Incontinence of urine Hyperlipidemia BPH (benign prostatic hyperplasia) CAD (coronary artery disease) Social History Smoking and tobacco/nicotine status: never used tobacco/nicotine Quit status (tobacco/nicotine): has quit using Year quit tobacco: 1971 Former quit date comment: 1ppd X 14 years Alcohol intake: current Alcohol intake frequency: holidays/special occasions only Physical Exam Const: COMMON NORMALS: no acute distress and patient oriented x3 EXAM LIMITATIONS: physical limitations (Dysarthria) GENERAL APPEARANCE: cooperative, comfortable and well developed ORIENTATION/CONSCIOUSNESS: Yes awake, Yes oriented to person, Yes oriented to place and Yes oriented to time OTHER: Nontoxic-appearing, no acute respiratory distress Neck/C-Spine: COMMON NORMALS: full ROM, supple and no JVD Resp: COMMON NORMALS: normal respiratory effort, No retractions, No use of accessory muscles and clear to auscultation bilaterally AUSCULTATION: clear to auscultation bilaterally OTHER: Distant lung sounds, otherwise no adventitious sounds to auscultation. No retractions or tachypnea. Cardio: COMMON NORMALS: no JVD, regular rate, regular rhythm, No clicks present (Cardio), No murmurs present (Cardio) and No rub (Cardio) RATE: regular rate RHYTHM: regular rhythm GI: COMMON NORMALS: Normal to inspection, nondistended, normoactive bowel sounds present, Soft to palpation and non-tender AUSCULTATION: Yes normoactive bowel sounds PALPATION: Yes Soft to palpation RECTAL EXAM: Yes deferred Extremity: COMMON NORMALS: normal to inspection, full ROM and capillary refill normal Neuro: COMMON NORMALS: patient oriented x3, moves all extremities, no focal motor deficits and no sensory deficits noted SENSORIUM/ORIENTATION: Yes oriented to person, Yes oriented to place and Yes oriented to time Skin: COMMON NORMALS: no rashes or lesions noted GENERAL SKIN EXAM: no rashes or lesions noted Course Vital Signs: Vital signs: Vital Signs Temperature 98.4 F 03/26/25 13:05 Pulse Rate 95 03/26/25 17:34 Respiratory Rate 16 03/26/25 13:05 Blood Pressure 151/82 03/26/25 17:34 Pulse Oximetry 94 03/26/25 17:34 Oxygen Delivery Me thod Room Air 03/26/25 16:30 Oxygen Flow Rate 2 03/26/25 13:41 MDM - SOB/Dyspnea Medical Decision Making Patient has a history of COPD is presenting with shortness of breath and productive cough. He has oxygen that he wears as needed at night, is not requiring use of oxygen at this time to maintain normal O2 saturation. Some distant lung sounds on exam but otherwise no adventitious lung sounds and overall he is nontoxic-appearing and rest of vitals are stable. CBC, CMP, ABG, delta troponin, and BNP are all unremarkable. COVID swab is negative. Chest x-ray showing emphysema with bibasilar opacities, and clinically this is presenting as a COPD exacerbation. Do not feel that he needs to come to the hospital with his normal oxygenation and clinical status but we will treat at home with doxycycline and have him continue doing his oxygen as needed. Patient agrees with this plan. Has been stable throughout ED course. I did give him strict return precautions if he starts to develop worsening shortness of breath, high fever, or any focal neurological deficit. Lab Data 03/26/25 13:40 03/26/25 13:40 Labs/Radiology: Radiology Impressions Chest X-Ray 03/26/25 13:19 IMPRESSION: Emphysema with bibasilar opacities. Laboratory Results WBC 5.29 10^3/uL (3.29-11.43) 03/26/25 13:40 RBC 4.89 10^6/uL (3.85-5.65) 03/26/25 13:40 Hgb 14.20 g/dL (11.27-16.99) 03/26/25 13:40 Hct 45.9 % (37-53) 03/26/25 13:40 MCV 93.9 fl (82-101) 03/26/25 13:40 MCH 29.0 pg (27-33) 03/26/25 13:40 MCHC 30.9 g/dL (30-55) 03/26/25 13:40 RDW 15.1 % (12.1-15.1) 03/26/25 13:40 Plt Count 193 10^3/cmm (157-399) 03/26/25 13:40 MPV 11.5 fL (7.4-10.4) H 03/26/25 13:40 Neut % (Auto) 70.9 % 03/26/25 13:40 Lymph % (Auto) 14.4 % 03/26/25 13:40 [place] % (Auto) 9.6 % 03/26/25 13:40 Eos % (Auto) 4.3 % 03/26/25 13:40 Baso % (Auto) 0.4 % 03/26/25 13:40 Neut # (Auto) 3.75 10^3/uL (1.8-7.7) 03/26/25 13:40 Lymph # (Auto) 0.8 10^3/uL (0.8-4.8) 03/26/25 13:40 [place] # (Auto) 0.5 10^3/uL (0.2-0.9) 03/26/25 13:40 Eos # (Auto) 0.2 10^3/uL (0.0-0.8) 03/26/25 13:40 Baso # (Auto) 0.0 10^3/uL (0.0-0.1) 03/26/25 13:40 Nucleated RBC % (auto) 0 % 03/26/25 13:40 Nucleated RBCs # 0.0 /100WBC 03/26/25 13:40 Specimen Type Arterial 03/26/25 13:55 Sample Site Radial, right 03/26/25 13:55 ABG pH 7.44 (7.35-7.45) 03/26/25 13:55 ABG pCO2 44.7 mmHg (35-45) 03/26/25 13:55 ABG pO2 66.3 mmHg (80.0-100.0) L 03/26/25 13:55 ABG PO2/FiO2 Ratio 315 03/26/25 13:55 ABG HCO3 30.1 mmol/L (22-26) H 03/26/25 13:55 ABG O2 Saturation 94.5 03/26/25 13:55 ABG Base Excess 5.0 mmol/L (-2.0-2.0) H 03/26/25 13:55 Kapil Test Pos 03/26/25 13:55 A-a O2 Gradient 3.7 mmHg (5-10) L 03/26/25 13:55 Hematocrit 44.3 % (42-52) 03/26/25 13:55 Hgb O2 Saturation 92.3 % (95-100) L 03/26/25 13:55 Carboxyhemoglobin 1.4 %THgb (0.4-20.1) 03/26/25 13:55 Methemoglobin 0.9 % (0.4-1.5) 03/26/25 13:55 Total Hemoglobin 14.5 g/dL (14-18) 03/26/25 13:55 Sodium 140.0 mmol/L (131-143) 03/26/25 13:55 Potassium 5.1 mmol/L (3.5-5.0) H 03/26/25 13:55 Glucose 118.0 mg/dL (70-115) H 03/26/25 13:55 Ionized Calcium 1.3 mmol/L (1.1-1.4) 03/26/25 13:55 O2 Delivery Device Room air 03/26/25 13:55 FiO2 21.0 % 03/26/25 13:55 Ge[employer] Powerplant Mechanic ID [place] 03/26/25 13:55 Sodium 140 mmol/L (136-145) 03/26/25 13:40 Potassium 4.8 mmol/L (3.5-5.1) 03/26/25 13:40 Chloride 101 mmol/L (98-107) 03/26/25 13:40 Carbon Dioxide 28 mmol/L (22-29) 03/26/25 13:40 Anion Gap 15.8 (5-19) 03/26/25 13:40 BUN 32 mg/dL (8-23) H 03/26/25 13:40 Creatinine 0.9 mg/dL (0.7-1.2) 03/26/25 13:40 GFR Calculation Not Reportable 03/26/25 13:40 Glucose 103 mg/dL (65-115) 03/26/25 13:40 Calculated Osmolality 297 mOsm/kg (285-295) H 03/26/25 13:40 Lactic Acid 1.2 mmol/L (0.5-2.2) 03/26/25 13:40 Calcium 10.3 mg/dL (8.5-10.5) 03/26/25 13:40 Total Bilirubin 0.5 mg/dL (0.15-1.2) 03/26/25 13:40 AST 16 U/L (0-40) 03/26/25 13:40 ALT 12 U/L (0-41) 03/26/25 13:40 Alkaline Phosphatase 142 U/L (40-130) H 03/26/25 13:40 Troponin T Baseline 41 ng/L (0-15) H 03/26/25 13:40 Troponin T 120 Minute 34.28 ng/L (0-15) H 03/26/25 15:52 Delta Troponin T -6.72 ABS# (0-10) L 03/26/25 15:52 NT-Pro-B Natriuret Pep 1520 pg/mL (0-450) H 03/26/25 13:40 Total Protein 6.9 g/dL (6.6-8.7) 03/26/25 13:40 Albumin 4.1 g/dL (3.5-5.2) 03/26/25 13:40 Globulin 2.8 g/dL (1.3-4.6) 03/26/25 13:40 Procalcitonin 0.09 ng/mL (0-0.5) 03/26/25 13:40 Urine Color Yellow (Yellow) 03/26/25 14:20 Urine Appearance Cloudy (CLEAR) A 03/26/25 14:20 Urine pH 8.0 (5-7) A 03/26/25 14:20 Ur Specific [place] 1.016 (1.005-1.030) 03/26/25 14:20 Urine Protein Trace (Negative) A 03/26/25 14:20 Urine Glucose (UA) Negative (Normal) 03/26/25 14:20 Urine Ketones Negative (Negative) 03/26/25 14:20 Urine Blood Negative (Negative) 03/26/25 14:20 Urine Nitrate Negative (Negative) 03/26/25 14:20 Urine Bilirubin Negative (Negative) 03/26/25 14:20 Urine Urobilinogen 1.0 mg/dL (Negative) 03/26/25 14:20 Ur Leukocyte Esterase 1+ (Negative) A 03/26/25 14:20 Urine RBC 0-2 /hpf (0-2) 03/26/25 14:20 Urine WBC 11-20 /hpf (0-5) H 03/26/25 14:20 Ur Squamous Epith Cells 0-5 /hpf (0-5) 03/26/25 14:20 Amorphous Sediment Not Reportable 03/26/25 14:20 Urine Bacteria None seen /hpf (NONE) 03/26/25 14:20 Hyaline Casts 0-4 /lpf H 03/26/25 14:20 Influenza A (PCR) Negative (Negative) 03/26/25 13:26 Influenza Type B (PCR) Negative (Negative) 03/26/25 13:26 RSV (PCR) Negative (Negative) 03/26/25 13:26 SARS-CoV-2 (PCR) Negative (Negative) 03/26/25 13:26 All radiology interpretation(s) finalized by discharge Discharge Plan Discharge Patient Disposition: Home Clinical Impression: COPD with acute exacerbation Condition: Stable Prescriptions: New doxycycline hyclate 100 mg tablet 100 mg PO BID 10 Days Qty: 20 0RF No Action sertraline 25 mg tablet 25 mg PO DAILY Qty: 90 1RF aspirin 325 mg tablet 325 mg PO DAILY magnesium hydroxide [Milk of Magnesia] 400 mg/5 mL suspension 5 ml PO DAILY PRN (Reason: Constipation) (DME) AffloVest See Rx Instructions .Route .MEDSUPPLY Qty: 1 0RF Rx Instructions: High frequency chest wall oscillation at 5Hz-20Hz for 30 minutes twice daily. ketoconazole 2 % cream 1 applic topical DAILY Qty: 60 0RF vitamin A and D [A and D] Ointment 1 applic TOPICAL 6XD PRN (Reason: pressure sore) fluoxetine 20 mg Capsule 20 mg PO DAILY levothyroxine 125 mcg tablet 125 mcg PO DAILY umeclidinium-vilanterol [Anoro Ellipta] 62.5-25 mcg/actuation blister with device 1 inh inhalation QPM Rx Instructions: 340 B Discharge Orders: Discharge ED (Routine); Ordered 03/26/25 Ordered By: Jethro Rose Referrals: Dalton Blood DO [Primary Care Provider, [facility]] Patient Instructions: Patient Portal & [facility] Instructions Activity Restrictions/Additional Instructions: COPD Exacerbation Discharge Instructions Diagnosis: Acute exacerbation of chronic obstructive pulmonary disease (COPD) in an 84-year-old male, managed as outpatient. Baseline home oxygen use: 2 L/min as needed. No new or increased oxygen requirement at discharge. Medications: - Doxycycline 100 mg orally twice daily for 10 days. This regimen is supported by the [place] [employer] and the Global Initiative for Chronic Obstructive Lung Disease for moderate COPD exacerbations with increased sputum purulence or volume. While some evidence suggests shorter courses (<=?7 days) may be sufficient, 10-day regimens remain common in [place] practice and are supported by clinical trials. Doxycycline has demonstrated efficacy in reducing short-term treatment failure in real-world outpatient settings.[1]https://goldcopd.org/wp-content/uploads//PMUO-6628-Whgnlh-v1.0-15Nov2024_WMV.pdf[2]https://www.aafp.org/pubs/afp/issues//p100.html[3]https://www.aafp.org/link_out?vypw=01584575[4]https://pubmed.ncbi.nlm.nih.gov/67548578[5] https://www.nejm.org/doi/full/10.1056/PABBjw149657[6]https://pubmed.ncbi.nlm.nih.gov/87656428 - Continue all baseline inhaled therapies (long-acting bronchodilators, inhaled corticosteroids if prescribed). - Use short-acting bronchodilators (e.g., albuterol) as needed for increased dyspnea.[7]https://jamanetwork.com/journals/analisa/fullarticle/10.1001/analisa.2019.0131?utm_source=openevidence&utm_medium=referral[8]https://www.nejm.org/doi/full/10.1056/CHTJhd7683272[9]https://www.nejm.org/doi/full/10.1056/TYHSar1075837 Oxygen Therapy: - Continue home oxygen at baseline dose (2 L/min as needed). No new continuous oxygen requirement. - Reassess oxygen needs periodically, as requirements may decrease after recovery from exacerbation. The [place] Thoracic Society recommends reassessment after acute events to avoid unnecessary long-term oxygen therapy.[10]https://www.ncbi.nlm.nih.gov/pmc/articles/ZFX8833442/ Activity and Support: - Encourage gradual return to baseline activity as tolerated. - Consider referral to pulmonary rehabilitation if not previously enrolled, as this improves symptoms, exercise tolerance, and reduces readmissions after exacerbation.[7]https://jamanetwork.com/journals/analisa/fullarticle/10.1001/analisa.2019.0131?utm_source=openevidence&utm_medium=referral Follow-Up: - Schedule outpatient follow-up within 1?2 weeks to reassess symptoms, oxygen needs, and medication adherence. Strict Return Precautions: - Seek immediate medical attention for any of the following: - Marked increase in shortness of breath or respiratory rate at rest, especially if unrelieved by rescue inhalers.[7]https://jamanetwork.com/journals/analisa/fullarticle/10.1001/analisa.2019.0131?utm_source=openevidence&utm_medium=referral[8]https://www.nejm.org/doi/full/10.1056/CACNem7671837 - New or worsening hypoxemia (SpO? <88% on usual oxygen flow). - Chest pain, palpitations, or confusion. - Fever or chills, especially with new or worsening cough (may indicate pneumonia).[7]https://jamanetwork.com/journals/analisa/fullarticle/10.1001/analisa.2019.0131?utm_source=openevidence&utm_medium=referral - Significant increase in sputum volume or purulence. - Difficulty speaking in full sentences, use of accessory muscles to breathe, or signs of overt respiratory distress. - New or worsening lower extremity edema. - Inability to tolerate oral medications or fluids. Additional Instructions: - Complete the full course of doxycycline unless otherwise directed. - Monitor for side effects of antibiotics (e.g., gastrointestinal upset, rash). - Maintain adequate hydration and nutrition. - Avoid exposure to respiratory irritants (smoke, fumes). - Ensure proper inhaler technique and adherence to prescribed regimen. Education: - Review signs of worsening COPD and when to seek care. - Reinforce importance of medication adherence and follow-up. Summary of Evidence: - Antibiotic therapy (doxycycline) is recommended for moderate COPD exacerbations with increased sputum purulence or volume, and reduces short-term treatment failure.[1]https://goldcopd.org/wp-content/uploads//HKWT-3582-Crcxgf-v1.0-15Nov2024_WMV.pdf[2]https://www.aafp.org/pubs/afp/issues//p100.html[6]https://pubmed.ncbi.nlm.nih.gov/82759292[3]https://www.aafp.org/link_out?fbvy=27666426 - Most exacerbations can be managed outpatient if there is no new oxygen requirement, stable labs, and imaging.[7]https://jamanetwork.com/journals/analisa/fullarticle/10.1001/analisa.2019.0131?utm_source=openevidence&utm_medium=referral[8]https://www.nejm.org/doi/full/10.1056/NMZPbe4705504[1]https://goldcopd.org/wp-content/uploads/RIDY-8351-Mqeyuj-v 1.0-15Nov2024_WMV.pdf - Strict return precautions are essential to identify severe exacerbations requiring urgent evaluation.[7]https://jamanetwork.com/journals/analisa/fullarticle/10.1001/analisa.2019.0131?utm_source=openevidence&utm_medium=referral[8]https://www.ne.org/doi/full/10.1056/GSWFnp0366659[1]https://goldcopd.org/wp-content/uploads//CKFR-0579-Rvgkh t-v1.0-15Nov2024_WMV.pdf - Reassessment of oxygen needs after exacerbation is recommended to avoid unnecessary long-term therapy.[10]https://www.ncbi.nlm.nih.gov/pmc/articles/FRJ3585066/ References Global Strategy for Prevention, Diagnosis and Management of COPD: 2024 Reporthttps://goldcopd.org/wp-content/uploads//OBJJ-6984-Mitqun-v1.0-15Nov2024_WMV.pdf. Adarsh Wei, Armaan Vitale, Justo Quiroz et al. Global Initiative for Chronic Obstructive Lung Disease. Treatment of Chronic Obstructive Pulmonary Disease Exacerbations: Guidelines from the [place] Academy of Family Physicianshttps://www.aafp.org/pubs/afp/issues//p100.html. [place] [employer]icians (2020). Pharmacologic Management of COPD Exacerbations: A Clinical Practice Guideline From the AAFPhttps://www.aafp.org/link_out?kcnn=77890140. Jenifer NicholsonJ, Rafael L, Mariia KW, et al. [place] Family Physician. 2020;104(1):Online. Doxycycline for Outpatient-Treated Acute Exacerbations of COPD: A Randomised Double-Blind Placebo-Controlled Trialhttps://pubmed.ncbi.nlm.nih.gov/58807937. van Jose Carlos P, Fiore G, Thom P, et al. The Lancet. Respiratory Medicine. 2017;5(6):492-499. doi:10.1016/F4236-00871754139-6. Acute Exacerbations of Chronic Obstructive Pulmonary Diseasehttps://www.nejm.org/doi/full/10.1056/ULGTmm944811. Rom MCKAY. The [place] Journal of Medicine. 2002;346(13):988-94. doi:10.1056/VOAUxx431378. Real-World Effects of Antibiotic Treatment on Acute COPD Exacerbations in Outpatients: A Cohort Study Under the [employer] Initiativehttps://pubmed.ncbi.nlm.nih.gov/12645678. Kim Y, Shelby V, Boezen HM, et al. Respiration; International Review of Thoracic Diseases. 2021;101(6):553-564. doi:10.1159/199319998. Diagnosis and Outpatient Management of Chronic Obstructive Pulmonary Disease: A Reviewhttps://jamanetwork.com/journals/analisa/fullarticle/10.1001/analisa.2019.0131?utm_source=openevidence&utm_medium=referral. Grant CM, Lester FC. ANALISA. 2019;321(8):786-797. doi:10.1001/analisa.2019.0131. Update on Clinical Aspects of Chronic Obstructive Pulmonary Diseasehttps://www.nejm.org/doi/full/10.1056/OBXOvp9739863. Iam BR, Apple JA. The [place] Journal of Medicine. 2019;381(13):5007-4068. doi:10.1056/VLXXsj6694565. Outpatient Management of Severe COPDhttps://www.nejm.org/doi/full/10.1056/CTJPrq6742897. Kaylin LYN. The [place] Journal of Medicine. 2010;362(15):1407-16. doi:10.1056/PCSXad7716003. Home Oxygen Therapy for Adults With Chronic Lung Disease. An Official [place] Thoracic Society Clinical Practice Guidelinehttps://www.ncbi.nlm.nih.gov/pmc/articles/QKL4024869/. Will SS, Eduardo SINGER, Niall KEE, et al. [place] Journal of Respiratory and Critical Care Medicine. 2020;202(10):z387-p480. doi:10.1164/rccm.231380-8180DL. Print Language: Albanian Coding Level of Care Code ED Addresser for Onel Cool
[2025-03-26 13:57] LABS: Hematocrit 45.9 % (37-53); Hemoglobin 14.20 g/dL (11.27-16.99); Mean Corpuscular HGB Conc 30.9 g/dL (30-55); Mean Corpuscular Hemoglobin 29.0 pg (27-33); Mean Corpuscular Volume 93.9 fl (82-101); Nucleated Red Blood Cells % 0 %; Platelet Count 193 10^3/cmm (157-399); Red Blood Count 4.89 10^6/uL (3.85-5.65); White Blood Count 5.29 10^3/uL (3.29-11.43)
[2025-03-26 14:06] LABS: ABG PCO2 44.7 mmHg (35-45); ABG PH Result 7.44 (7.35-7.45); Alveolar-Arterial Oxygen Gradi 3.7 mmHg (5-10); Arterial Blood Gas Hematocrit 44.3 % (42-52); Blood Gas Allen Test Pos; Blood Gas Operator Identificat WALCI; Blood Gas Sample Site Radial, right; Blood Gas Sample Type Arterial; Carboxyhemoglobin 1.4 %THgb (0.4-20.1); Glucose Level-ABG 118.0 mg/dL (70-115); HCO3 ABG 30.1 mmol/L (22-26); Ionized Calcium Level - ABG 1.3 mmol/L (1.1-1.4); Methemoglobin 0.9 % (0.4-1.5); Oxygen Saturation ABG 94.5; PO2 ABG 66.3 mmHg (80.0-100.0); PO2 FiO2 Ratio Arterial Blood 315; Potassium Level - ABG 5.1 mmol/L (3.5-5.0); Sodium Level - ABG 140.0 mmol/L (131-143)
[2025-03-26 14:10] LABS: Troponin(5th) Baseline 41 ng/L (0-15)
[2025-03-26 14:11] LABS: Lactic Sepsis W/Reflex 1.2 mmol/L (0.5-2.2)
[2025-03-26 14:13] LABS: Respiratory Syncytial Virus Ce NEGATIVE (Negative); SARS-CoV-2 PCR NEGATIVE (Negative)
[2025-03-26 14:18] LABS: NT Pro B Type Natriuretic Pept 1520 pg/mL (0-450); Procalcitonin 0.09 ng/mL (0-0.5)
[2025-03-26 14:29] LABS: Alanine Aminotransferase 12 U/L (0-41); Albumin Level 4.1 g/dL (3.5-5.2); Alkaline Phosphatase 142 U/L (40-130); Anion Gap 15.8 (5-19); Aspartate Amino Transferase 16 U/L (0-40); Blood Urea Nitrogen 32 mg/dL (8-23); Calcium 10.3 mg/dL (8.5-10.5); Carbon Dioxide 28 mmol/L (22-29); Chloride 101 mmol/L (98-107); Creatinine Clr Calc Pharmacy 64.5037; Globulin 2.8 g/dL (1.3-4.6); Glucose 103 mg/dL (65-115); Osmolality Calculated 297 mOsm/kg (285-295); Potassium 4.8 mmol/L (3.5-5.1); Sodium 140 mmol/L (136-145); Total Protein 6.9 g/dL (6.6-8.7)
[2025-03-26 14:39] LABS: Glucose Urine UA Negative (Normal); Nitrate Urine Negative (Negative); Specific Gravity, Urine 1.016 (1.005-1.030)
[2025-03-26 14:44] LABS: Add Urine Microscopic? YES
--- NOTE | 2025-03-26 15:22 | ECG_ITS ---
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 Measurements Intervals Barry Rate: 74 P: 0 KS: 0 QRS: 70 QRSD: 106 T: 72 QT: 379 QTc: 423 Interpretive Statements ATRIAL FIBRILLATION POSSIBLE INFERIOR MYOCARDIAL INFARCTION , PROBABLY OLD [30 ms Q WAVE IN II/aVF] ABNORMAL RHYTHM ECG Compared to ECG 03/26/2025 13:22:11 No significant changes Electronically Signed On 03-27-2025 18:10:50 CDT by Sal Nieves M.D. [email or web address]
[2025-03-26 16:54] LABS: Troponin 5 2HR 34.28 ng/L (0-15)
[2025-03-26 16:55] LABS: Troponin 5 2HR Delta -6.72 ABS# (0-10)
== END 2025-03-26 17:35 | disposition home or self-care (01) ==
PROVIDERS: Emergency Provider Physician Assistant; PCP Family Medicine
DX: J44.1 Chronic obstructive pulmonary disease with (acute) exacerbation (principal); I10 Essential (primary) hypertension; I25.10 Atherosclerotic heart disease of native coronary artery without angina pectoris; Z79.82 Long term (current) use of aspirin; Z87.891 Personal history of nicotine dependence
CPT/HCPCS: 36415; 36600; 71045; 80051; 80053; 81001; 82330; 82805; 83605; 83880; 84145; 84484; 85025; 87040; 87637; 93005; 99285

== ENCOUNTER → 2025-06-20 15:50 | Outpatient (BNVA) | payer MEDICARE, SELFPAY | PROVIDERS: PCP Family Medicine; Visit Provider Nurse Practitioner Family | DX: R30.0 Dysuria (principal); R52 Pain, unspecified | CPT/HCPCS: 81000; 87086 ==